=== PATIENT | male | born 1940 | race Caucasian/White ===

== ENCOUNTER 2018-08-09 09:28 | Inpatient (IN) | payer MEDICARE, OTHER ==
--- OUTSIDE RECORDS SUMMARY | 2018-08-09 09:44 | XMS REPORT | Continuity of Care Document ---
:1940 External Reference #:[id number] Author Name Albert Mathews, OD Address [address] [place] [address] Care Team Providers Name Role Phone MD Sancho, Christine Care Team Information Child Development Specialist Unavailable MD Sancho, Christine Primary Care Physician Unavailable Payers Date Identification Numbers Payment Provider Subscriber Policy Number: [id number] [employer] Pos Eduardo Mosley PayID: [id number] [address] [place] [address] Problems Active Problems Provider Date Presbyopia Albert Joseph O.D. Onset: 01/09/2015 Regular astigmatism Albert Joseph O.D. Onset: 01/09/2015 Myopia Albert Joseph O.D. Onset: 01/09/2015 Primary open-angle glaucoma, moderate stage Albret Joseph O.D. Onset: 01/09 Vitreous degeneration Albert Joseph O.D. Onset: 01/08/2014 Nuclear senile cataract Albert Joseph O.D. Onset: 01/08/2014 Open-angle glaucoma DR. Kayla Carrasco O.D. Onset: 04/03/2013 Family History Date Family Member(s) Observation Comments Father Glaucoma Father due to Natural Causes () Father Diabetes Mother Glasses Mother due to Natural Causes () Social History Type Date Description Comments Sex Unknown ETOH Use Occasionally consumes alcohol Tobacco Use Start: Unknown End: Unknown Patient is a former smoker Smoking Status Reviewed: 07/15/18 Patient is a former smoker Allergies, Adverse Reactions, Alerts Active Allergies Reaction Severity Comments Date Seasonal 04/03/2013 Lipitor 04/03/2013 Neosporin 04/03/2013 Medications Active Medications SIG Qnty Indications Ordering Provider Date Dorzolamide instill 1 drop 10units Albert Mathews, OD 01/17/2018 HCL/Timolol Maleate twice a day both eyes 22.3-6.8mg/ml Solution Latanoprost 1 drops both 7.5units Albert Mathews, OD 08/30/2017 0.005% eyes every night Solution Lisinopril MD Sancho, 40mg King Tablets Amlodipine Besylate MD Sancho, King 5mg Tablets Pravastatin Sodium MD Sancho, King 20mg Tablets Allopurinol MD Sancho, 300mg King Tablets Diltiazem HCL ER MD Sancho, Coated Beads King 240mg Tablets ER 24HR History Medications Dorzolamide instill 1 drop 10units Albert Mathews, 09/03/2017 - HCL/Timolol Maleate Qam OU OD 01/17/2018 22.3-6.8mg/ml Solution Latanoprost 1 drops both 7.500ml Albert Mathews, 08/23/2017 - 0.005% eyes every OD 08/30/2017 Solution night Cosopt one drop Qam OU 10ml Albert Mathews, 08/23/2017 - 22.3-6.8mg/ml OD 09/23/2017 Solution Cosopt one drop Qam OU 10ml Albert Mathews, 02/18/2017 - 22.3-6.8mg/ml OD 08/23/2017 Solution Latanoprost 1 drops both 7.500ml Albert Mathews, 02/10/2017 - 0.005% eyes every OD 08/23/2017 Solution night Cosopt one drop Qam OU 10ml H40.1133 Albert Mathews, 08/27/2016 - 22.3-6.8mg/ml OD 02/18/2017 Solution Dorzolamide instill 1 drop 10units H40.1133 Albert Mathews, 06/26/2016 - HCL/Timolol Maleate Qam OU OD 09/03/2017 22.3-6.8mg/ml Solution Timolol Maleate 1 drops left 15ml H40.11x2 [place], 05/14/2015 - 0.5% eye every M.D. 08/27/2016 Solution morning Latanoprost instill 1 drop 7.5ml [place], 11/10/2013 - 0.005% in each eye at M.D. 02/10/2017 Solution bedtime Vital Signs Date Vital Result Comment 03/30/2018 9:31am Intraocular Pressure Right Eye 13 mmHg Intraocular Pressure Left Eye 13 mmHg 12/24/2017 11:15am Intraocular Pressure Right Eye 16 mmHg Intraocular Pressure Left Eye 15 mmHg 09/23/2017 8:18am Intraocular Pressure Right Eye 14 mmHg Intraocular Pressure Left Eye 15 mmHg 06/22/2017 8:57am Intraocular Pressure Right Eye 12 mmHg Intraocular Pressure Left Eye 12 mmHg 03/24/2017 8:25am Intraocular Pressure Right Eye 15 mmHg Intraocular Pressure Left Eye 16 mmHg 12/22/2016 8:33am Intraocular Pressure Right Eye 13 mmHg Intraocular Pressure Left Eye 13 mmHg 08/27/2016 9:31am Intraocular Pressure Right Eye 11 mmHg Intraocular Pressure Left Eye 11 mmHg 06/26/2016 2:06pm Intraocular Pressure Right Eye 15 mmHg Intraocular Pressure Left Eye 15 mmHg 04/06/2016 8:37am Intraocular Pressure Right Eye 16 mmHg Intraocular Pressure Left Eye 16 mmHg 05/24/2015 9:36am Intraocular Pressure Right Eye 16 mmHg Intraocular Pressure Left Eye 15 mmHg 05/14/2015 11:44am Intraocular Pressure Right Eye 17 mmHg Intraocular Pressure Left Eye 33 mmHg 01/09/2015 8:24am Intraocular Pressure Right Eye 14 mmHg Intraocular Pressure Left Eye 14 mmHg 08/09/2014 9:46am Intraocular Pressure Right Eye 15 mmHg Intraocular Pressure Left Eye 15 mmHg 05/08/2014 8:58am Intraocular Pressure Right Eye 18 mmHg Intraocular Pressure Left Eye 18 mmHg 01/08/2014 8:36am Intraocular Pressure Right Eye 19 mmHg Intraocular Pressure Left Eye 19 mmHg 09/05/2013 8:14am Intraocular Pressure Right Eye 17 mmHg Intraocular Pressure Left Eye 17 mmHg 06/06/2013 8:41am Intraocular Pressure Right Eye 17 mmHg Intraocular Pressure Left Eye 17 mmHg 04/03/2013 9:04am Intraocular Pressure Right Eye 16 mmHg Intraocular Pressure Left Eye 16 mmHg Procedures Date Code Description Status 03/30/2018 21835 Fundus Photography W/Interpretation & Report Completed 03/30/2018 07646 Eye Exam Est Intermediate Completed 12/24/2017 93087 Oct, Optic Nerve Completed 12/24/2017 46847 Eye Exam Est Intermediate Completed 09/23/2017 43438 Eye Exam Est Intermediate Completed 06/22/2017 82609 Visual Field Exam Extended, Unilateral Or Bilateral Completed 06/22/2017 71140 Eye Exam Est Intermediate Completed 03/24/2017 52918 Fundus Photography W/Interpretation & Report Completed 03/24/2017 38495 Ophthalmoscopy Subsequent Completed 03/24/2017 62216 Refraction Completed 03/24/2017 32793 Eye Exam Est Intermediate Completed 12/22/2016 47541 Eye Exam Est Intermediate Completed 12/22/2016 92283 Oct, Optic Nerve Completed 06/26/2016 41522 Oct, Optic Nerve Completed 06/26/2016 97757 Visual Field Exam Extended, Unilateral Or Bilateral Completed 06/26/2016 05823 Eye Exam Est Intermediate Completed 04/06/2016 43808 Fundus Photography W/Interpretation & Report Completed 04/06/2016 25214 Ophthalmoscopy Subsequent Completed 04/06/2016 45988 Eye Exam Est Comprehensive Completed 2015 65906 Visual Field Exam Extended, Unilateral Or Bilateral Completed 2015 67922 Visual Field Exam Extended, Unilateral Or Bilateral Completed 05/24/2015 00442 Oct, Optic Nerve Completed 05/24/2015 50753 Eye Exam Est Intermediate Completed 01/09/2015 15212 Eye Exam Est Comprehensive Completed 01/09/2015 28358 Fundus Photography W/Interpretation & Report Completed 08/09/2014 30779 Visual Field Exam Extended, Unilateral Or Bilateral Completed 08/09/2014 65389 Eye Exam Est Intermediate Completed 05/08/2014 23282 Oct, Optic Nerve Completed 05/08/2014 83803 Eye Exam Est Intermediate Completed 01/08/2014 42763 Refraction Completed 01/08/2014 35831 Eye Exam Est Comprehensive Completed 06/06/2013 43981 Visual Field Exam Extended, Unilateral Or Bilateral Completed 06/06/2013 72287 Eye Exam Est Intermediate Completed 04/03/2013 24347 Visual Field Exam Extended, Unilateral Or Bilateral Completed 04/03/2013 75903 Eye Exam Est Intermediate Completed 05/04/2011 90906 Eye Exam Est Intermediate Completed 05/04/2011 34629 Visual Field Exam Extended, Unilateral Or Bilateral Completed 01/27/2011 57785 Fundus Photography W/Interpretation & Report Completed 01/27/2011 55594 Refraction Completed 01/27/2011 82254 Eye Exam Est Comprehensive Completed 05/26/2010 05433 Eye Exam Est Intermediate Completed 03/17/2010 18794 Eye Exam Est Intermediate Completed 03/03/2010 30761 Visual Field Exam Extended, Unilateral Or Bilateral Completed 03/03/2010 64297 Eye Exam Est Intermediate Completed 02/10/2010 87300 Fundus Photography W/Interpretation & Report Completed 02/10/2010 20089 Refraction Completed 02/10/2010 26356 Eye Exam New Comprehensive Completed Encounters Type Date Location Provider Dx Diagnosis Office Visit 08/27/2016 Main Office Albert Mathews, OD H40.1133 Primary open-angle 9:15a glaucoma, bilateral, severe stage Office Visit 05/14/2015 Main Office Albert Joseph, H40.11x2 Primary open- angle 11:15a O.D. glaucoma, moderate stage Office Visit 09/05/2013 Main Office Albert Joseph, 365.10 Glaucoma Open Angle 8:00a O.D. Unspec Office Visit 10/24/[address] Kayla Carrasco, 365.00 Preglaucoma Unspec 9:00a O.D. 365.10 Glaucoma Open Angle Unspec Plan of Treatment 07/15/2018 - Albert Mathews, ODH40.1133 Primary open-angle glaucoma, bilateral, severe vicivG87.13 Age-related nuclear cataract, bilateralFollow up:3 mos IOP, sooner PRN
[2018-08-09] MEDS ORDERED: NS 0.9% 1000 ML** 1,000 ML IV.FLUID IV ONE (10:21)
--- NOTE | 2018-08-09 10:46 | ED ---
Dizziness - HPI Summary HPI Summary: Pt is a 77 y/o M with hx metastatic pancreatic cancer presenting to the ED with a chief complaint of generalized weakness first onset multiple weeks but worsened in the past week. He presents with his and friends. His reports his last chemotherapy treatment was 08/01/18. He reports constipation, weakness, slight SOB on exertion, decrease in motor ability, decrease in oral intake, chills, weight loss of about 8-10lbs, and abd pain in the lower abd currently rated at a 3/10. He also had a brief period of red/orange urine that has since resolved. He denies fever, nausea, chest pain, calf pain, or edema. He used to use Insulin for his Diabetes but the chemotherapy causes his levels to go out of the normal range, so he does not take it anymore. He also has Morphine at home which he does not like to take, and he currently denies wanting any Morphine. He last fell on 08/07/[address] to the bathroom, where he scraped his knees. He also has paracentesis every couple of weeks, and the last time they drained them 4L were taken out, and an US showed they were loculated. When attempting paracentesis with loculations, only 800cc were taken off. Pt is next due for chemo on 08/15/18. Pt was due to have a CT tomorrow, and an MRI the next day. Vital signs while in room: HR 95bpm, SaO2 95% on room air, 19 respirations per minute, BP 105/67, temperature 99.1. Home Medications Medication Instructions Recorded Confirmed Type Allopurinol TAB* 300 mg PO QPM 05/07/17 08/02/18 History Diltiazem ER 200 tab PO QPM 05/07/17 08/02/18 History Lisinopril TAB* 20 mg PO QPM 05/07/17 08/02/18 History Dorzolamide/Timolol OPTH (NF) 1 drop BOTH EYES BID 05/12/17 08/02/18 History [Cosopt (NF)] Latanoprost 0.005%* [Xalatan 1 drop BOTH EYES DAILY 05/12/17 08/02/18 History 0.005%*] Cholecalciferol CAP/TAB(NF) 2,000 unit PO QAM 05/19/18 08/02/18 History [Vitamin D3 CAP/TAB (NF)] Magnesium Oxide TAB* [MagOx 400 400 mg PO BID 05/19/18 08/02/18 History TAB*] Vitamin D2 1 tab PO QAM 05/19/18 08/02/18 History - History Of Current Complaint Chief Complaint: EDWeakness Stated Complaint: DEHYDRATED/CHILLS/DISCOLORATION IN FACE PER PT WIF Hx Obtained From: Patient, Family/Inspector Multifocal Lens - Onset/Duration: Still Present, Gradually Timing: Weeks Severity Initially: Moderate Severity Currently: Moderate Character: Weak Aggravating Factor(s): Nothing Alleviating Factor(s): Nothing Associated Signs And Symptoms: Positive: SOB, Unsteady Gait, Decreased Oral Intake, Change In Diet, Chills, Inability to Walk - feels like his legs will give out.. Negative: Nausea, Chest Pain, Fever - Allergies/Home Medications Allergies/Adverse Reactions: Allergies Allergy/AdvReac Type Severity Reaction Status Date / Time bacitracin Allergy Unknown Verified 08/09/18 09:30 [From Neosporin Reaction ([id number])] Details neomycin Allergy Unknown Verified 08/09/18 09:30 [From Neosporin Reaction ([id number])] Details polymyxin B Allergy Unknown Verified 08/09/18 09:30 [From Neosporin Reaction ([id number])] Details Home Medications: Home Medications Allopurinol TAB* [Zyloprim 300 MG TAB*] 300 mg PO BEDTIME 08/09/18 [History Confirmed 08/09/18] Magic Mouth Was-RACHEL/MAAL/LIDO* 5 ml SWISH SPIT DAILY 08/09/18 [History Confirmed 08/09/18] Morphine Sulfate 15 mg PO Q2H PRN 08/09/18 [History Confirmed 08/09/18] Prochlorperazine TAB* [Compazine Tab*] 10 mg PO Q8H PRN 08/09/18 [History Confirmed 08/09/18] Spironolactone 50 mg PO BEDTIME 08/09/18 [History Confirmed 08/09/18] PMH/Surg Hx/FS Hx/Imm Hx Previously Healthy: No Endocrine/Hematology History: Denies: Hx Diabetes Cardiovascular History: Reports: Hx Hypertension Denies: Hx Pacemaker/ICD GI History: Reports: Other GI Disorders - PANCREATITIS, WAS IN HOSPITAL FEW WEEKS IN 04/2018,metastatic pancreatic CA History: Denies: Hx Renal Disease Sensory History: Reports: Hx Contacts or Glasses - GLASSES Denies: Hx Hearing Aid Opthamlomology History: Reports: Hx Contacts or Glasses - GLASSES Psychiatric History: Denies: Hx Panic Disorder - Cancer History Cancer Type, Location and Year: metastatic pancreatic CA on chemo - Surgical History Surgical History: Yes Surgery Procedure, Year, and Place: 194 tonsillectomy,. 2012 left leg with plate [facility]. power port R side chest. stent placed Hx Anesthesia Reactions: No Infectious Disease History: No Infectious Disease History: Denies: Traveled Outside the [place] in Last 30 Days - Family History Known Family History: Negative: Cardiac Disease - Social History Lives: With Family Alcohol Use: None Hx Substance Use: Yes Substance Use Type: Reports: Prescribed Substance Use Comment - Amount & Last Used: morphine Hx Tobacco Use: Yes Smoking Status (MU): Former Smoker Type: Cigarettes Amount Used/How Often: 1PPD 30 YRS Have You Smoked in the Last Year: No Review of Systems Positive: Chills, Fatigue, Other - dec. oral intake. Negative: Fever Negative: Chest Pain Positive: Shortness Of Breath Positive: Abdominal Pain, Other - constipation. Negative: Nausea Positive: other - red/orange urine that has since resolved Positive: Other - dec. in motor ability. Negative: Myalgia - calf pain, Edema Positive: Bruising - bilateral forearms , Other - abrasions bilat knees Positive: Weakness Psychological: Normal All Other Systems Reviewed And Are Negative: Yes Physical Exam - Summary Physical Exam Summary: Appearance: Ill-appearing, moderate pain distress, thin, borderline emaciated Skin: Warm, color reflects adequate perfusion, dry. Superficial abrasions of the bilateral knees. Multiple ecchymosis of bilateral forearms, superficial abrasions on bilateral elbows. Head: Normal Head/Face inspection, atraumatic Eyes: Conjunctiva clear, PERRL, EOMI, no nystagmus ENT: Normal inspection Neck: Supple, no nodes, no JVD Respiratory: Lungs clear, normal breath sounds, no respiratory distress Cardio: RRR, No murmur, pulses normal, brisk capillary refill Abdomen: Reducible ventral hernia, soft, non-tender, no rebound, no guarding, no masses, non-distended Bowel sounds: Present Musculoskeletal: Strength Intact/ROM intact, no calf tenderness, no edema. Psychological: Normal Neuro: Alert, muscle tone normal, no focal deficit Triage Information Reviewed: Yes Vital Signs On Initial Exam: Initial Vitals Temp Pulse Resp BP Pulse Ox 97.8 F 108 20 93/61 93 08/09/18 09:30 08/09/18 09:30 08/09/18 09:30 08/09/18 09:30 08/09/18 09:30 Vital Signs Reviewed: Yes - Marion Coma Scale Best Eye Response: 4 - Spontaneous Best Motor Response: 6 - Obeys Commands Best Verbal Response: 5 - Oriented Coma Scale Total: 15 Diagnostics - Vital Signs Vital Signs Temp Pulse Resp BP Pulse Ox 08/09/18 09:30 97.8 F 108 20 93/61 93 - Laboratory Result Diagrams: 08/10/18 05:30 08/10/18 05:30 Lab Statement: Any lab studies that have been ordered have been reviewed, and results considered in the medical decision making process. - Radiology CXR Radiology Interpretation Completed By: Radiologist Summary of Radiographic Findings: Hyperinflation. No active cardiopulmonary disease. ED physician has reviewed this report. - CT Brain CT CT Interpretation Completed By: Radiologist Summary of CT Findings: 1. No CT evidence for traumatic brain injury or acute intracranial process. 2. Involutional change and stigmata of chronic small vessel ischemic disease. ED physician has reviewed this report. Abd/pelv CT CT Interpretation Completed By: Radiologist Summary of CT Findings: 1. Interval progression of hepatic metastatic disease. 2. Small volume ascites primarily in the pelvis with interval decrease. 3. Negative for obstructive uropathy. 4. Solitary mildly enlarged aortocaval lymph node without change. ED physician has reviewed this report. - EKG 1045 Cardiac Rate: NL - 85bpm EKG Rhythm: Sinus Rhythm ST Segment: Non-Specific Ectopy: None EKG Comparison: Other - no prior to compare Summary of EKG Findings: An EKG at 1045 reveals NSR at 85bpm with nml AV/IV CT, nml QTc, and nml axis. No acute changes. ED MD has reviewed and interpreted this EKG. Low voltage. Re-Evaluation - Re-Evaluation 1st re-eval Re-Evaluation Time: 12:24 Change: Unchanged Comment: Pt's states he is a full code. Dizzy Course/Dx - Course Course Of Treatment: Nurse's notes reviewed, pt's medications reviewed this visit. Pt is a 77 y/o M presenting to the ED with a chief complaint of weakness first onset multiple weeks ago, but worsened in the last week. He reports constipation, weakness, slight SOB on exertion, decrease in motor ability, decrease in oral intake, chills, weight loss of about 8-10lbs, and abd pain in the lower abd currently rated at a 3/10. He also had a brief period of red/ orange urine that has since resolved. He denies fever, nausea, chest pain, calf pain, or edema. Vital signs while in room: HR 95bpm, SaO2 95% on room air, 19 respirations per minute, BP 105/67, temperature 99.1. On physical exam, the pt has multiple superficial abrasions of the bilateral knees, multiple ecchymosis of bilateral forearms, superficial abrasions on bilateral elbows. CXR shows: Hyperinflation. No active cardiopulmonary disease. An EKG at 1045 reveals NSR at 85bpm with nml AV/IV CT, nml QTc, and nml axis. No acute changes. ED MD has reviewed and interpreted this EKG. Low voltage. Pt's troponin I is 0.04. Pts hematology shows RBC of 3.00, Hgb of 8.2, Hct of 25, and RDW of 20. His INR is 1.45. His chemistry shows a Sodium of 127, Chloride of 95, Creatinine of 0.52, BUN/Creatinine ratio of 36.5, AST of 43, Alkaline phosphate of 341, CRP of 152.64, total protein of 5.6, Albumin of 2.4, and Albumin/Globulin ratio of 0.8. His BNP is 270. Brain CT shows: 1. No CT evidence for traumatic brain injury or acute intracranial process. 2. Involutional change and stigmata of chronic small vessel ischemic disease. Abd/pelv CT shows: 1. Interval progression of hepatic metastatic disease. 2. Small volume ascites primarily in the pelvis with interval decrease. 3. Negative for obstructive uropathy. 4. Solitary mildly enlarged aortocaval lymph node without change. I spoke with Dr. Rocha at 11:42 who will be accepting the pt to [facility] [place]. - Diagnoses Differential Diagnosis/HQI/PQRI: GI Bleed, Hypovolemia, Medication Reaction, Metabolic Abnormality Provider Diagnoses: Anemia, Hyponatremia, Generalized weakness, Weight loss, Abdominal pain, Elevated troponin, Pancreatic cancer metastasized to liver - Provider Notifications Discussed Care Of Patient With: Kaiser Rocha Time Discussed With Above Provider: 11:42 Instructed by Provider To: Admit As Inpatient Admit/Transition Orders Completed By ED Provider: Yes Discharge - Sign-Out/Discharge Documenting (check all that apply): Patient Departure All imaging exams completed and their final reports reviewed: Yes Patient Received Moderate/Deep Sedation with Procedure: No - Discharge Plan Condition: Stable Disposition: ADMITTED TO [facility] - Billing Disposition and Condition Condition: STABLE Disposition: Admitted to [facility] - Attestation Statements Document Initiated by Scribe: Yes Documenting Scribe: Terri Brown Provider For Whom Roberta is Documenting (Include Credential): Dr. Terrie Amado MD. Scribe Attestation: Terri Krueger scribed for Dr. Terrie Amado MD. on 08/11/18 at 0655. Scribe Documentation Reviewed: Yes Provider Attestation: The documentation as recorded by the peribe, Terri Brown accurately reflects the service I personally performed and the decisions made by me, Dr. Terrie Amado MD. Status of Scribe Document: Viewed Consult Consult: I spoke with Dr. Rocha at 11:42 who will be accepting the pt to [facility].
[2018-08-09 10:56] LABS: Hematocrit 25 % (42-52); Hemoglobin 8.2 g/dL (14.0-18.0); Mean Corpuscular HGB Conc 33 g/dL (31-36); Mean Corpuscular Hemoglobin 27 pg (27-31); Mean Corpuscular Volume 84 fL (80-94); Mean Platelet Volume 7.9 fL (7.4-10.4); Platelet Count 251 10^3/uL (150-450); Red Cell Distribution Width 20 % (10-15); White Blood Count 4.3 10^3/uL (3.5-10.8)
[2018-08-09 11:03] LABS: INR 1.45 (0.82-1.09)
[2018-08-09 11:17] LABS: ALT 52 U/L (7-52); AST 43 U/L (13-39); Albumin 2.4 g/dL (3.2-5.2); Albumin/Globulin Ratio 0.8 (1-3); Alkaline Phosphatase 341 U/L (34-104); Anion Gap 6 mmol/L (2-11); BUN/Creatinine Ratio 36.5 (8-20); Blood Urea Nitrogen 19 mg/dL (6-24); CO2 Carbon Dioxide 26 mmol/L (22-32); Calcium 8.7 mg/dL (8.6-10.3); Chloride 95 mmol/L (101-111); EGFR African American 187.5 (>60); EGFR Non-African American 154.9 (>60); Globulin 3.2 g/dL (2-4); Glucose 88 mg/dL (70-100); Potassium 3.8 mmol/L (3.5-5.0); Sodium 127 mmol/L (135-145); Total Protein 5.6 g/dL (6.4-8.9)
[2018-08-09 11:24] LABS: Troponin I 0.04 ng/mL (<0.04)
[2018-08-09 11:47] LABS: C Reactive Protein 152.64 mg/L (<8.01); Creatine Kinase 53 U/L (10-223)
[2018-08-09 11:55] LABS: ABS Lymphocytes 0.3 10^3/ul (1.0-4.8); ABS Monocytes 0.4 10^3/ul (0-0.8); ABS Neutrophils 3.5 10^3/ul (1.5-7.7); Lymphocyte % 7.3 %
[2018-08-09 12:13] LABS: Urine Appearance Cloudy; Urine Bacteria Absent (Absent); Urine Bilirubin Negative (Negative); Urine Blood Negative (Negative); Urine Color Amber; Urine Glucose Negative (Negative); Urine Ketones Negative (Negative); Urine Nitrite Negative (Negative); Urine Protein 1+(30 mg/dL) (Negative); Urine Red Blood Cell Trace(0-2/hpf) (Absent); Urine Specific Gravity 1.023 (1.010-1.030); Urine Urobilinogen Negative (Negative); Urine White Blood Cell Trace(0-5/hpf) (Absent)
[2018-08-09] MEDS ORDERED: Iohexol 300* (CONTRAST) 10 ML SDV IV ONE (12:27)
[2018-08-09] MEDS ORDERED: Prochlorperazine TAB* 10 MG PO PRN (16:21)
[2018-08-09] MEDS ORDERED: Magic Mouth Was-BEN/MAAL/LIDO SWISH SPIT PRN (16:21)
[2018-08-09] MEDS ORDERED: Morphine ORAL.SOLN 10 mg* 2 MG/ML UDC 5 ml PO PRN (16:21)
[2018-08-09 16:55] LABS: Prealbumin 4 mg/dL (18-38)
[2018-08-09] MEDS: Enoxaparin(*) 40 MG/0.4 ML SYR SUBCUT SCH (18:08)
[2018-08-09] MEDS: NS 0.9% 1000 ML** 1,000 ML IV SCH (18:09)
[2018-08-09] MEDS: Allopurinol TAB* 300 MG PO SCH (20:08)
[2018-08-10] MEDS ORDERED: Piperacillin/Tazobac ADVAN(*) 3.375 GM in NS 0.9% 100 ML* 100 ML IVPB ONE (05:29)
[2018-08-10 05:43] LABS: Hematocrit 23 % (42-52); Hemoglobin 7.7 g/dL (14.0-18.0); Mean Corpuscular HGB Conc 34 g/dL (31-36); Mean Corpuscular Hemoglobin 28 pg (27-31); Mean Corpuscular Volume 83 fL (80-94); Mean Platelet Volume 7.9 fL (7.4-10.4); Platelet Count 252 10^3/uL (150-450); Red Blood Count 2.75 10^6 /uL (4.18-5.48); Red Cell Distribution Width 20 % (10-15); White Blood Count 3.2 10^3/uL (3.5-10.8)
[2018-08-10 05:58] LABS: Albumin 2.2 g/dL (3.2-5.2); Albumin/Globulin Ratio 0.8 (1-3); Calcium 8.2 mg/dL (8.6-10.3); EGFR African American 196.1 (>60); EGFR Non-African American 162.1 (>60); Globulin 2.7 g/dL (2-4); Potassium 3.6 mmol/L (3.5-5.0); Total Bilirubin 0.7 mg/dL (0.2-1.0); Total Protein 4.9 g/dL (6.4-8.9)
[2018-08-10] MEDS ORDERED: Zosyn per Pharmacy* NOTE FOLLOW UP SCH (06:00)
[2018-08-10 06:40] LABS: ABS Lymphocytes 0.3 10^3/ul (1.0-4.8); ABS Monocytes 0.4 10^3/ul (0-0.8); ABS Neutrophils 2.4 10^3/ul (1.5-7.7); Lymphocyte % 9.6 %
[2018-08-10] MEDS: NS 0.9% 1000 ML** 1,000 ML IV SCH ×2 (08:00→20:55)
[2018-08-10] MEDS: ZOSYN 3.375 GM Q8H per EXTENDED INFUSION IVPB SCH ×4 (11:07→17:17)
--- NOTE | 2018-08-10 16:11 | CONSULT ---
Palliative / Hospice Consult Ordering Provider: Kaiser Rocha - PCP-Sancho Referakin Reason: Goals of care discussion/hospice - Subjective Code Status: DNR Advance Directives Location: No Advance Directives [facility] [[email or web address]] Part A Completed: Yes - on chart - History or Present Illness History or Present Illness: 77yo male with pancreatic cancer presents to ER with severe weakness and decreased intake. PMH is significant for ATN 04/2018 resolved, DM type 2, glaucoma, HTN, mitral valve insufficiency and osteoarthritis. 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 Studies ekg-nsr, CXR-no active disease, brain CT chronic small vessel ischemic disease, CT abd/pelvis-thorax emphysema, atelectasis and minimal effusion, multiple liver lesions, pancreatic mass head and neck, H/H 7.7/23, Na 128, BUN/ Cr 19/.5 egfr 162, Ca 8.2, tprot 4.9, alb 2.2, prealb 4, CA 19-9 95 and INR 1.45. All history is from pt, and medical records. Pt presented with fatigue in Feb and painless jaundice in Mar, cat scan showed mass in head and neck of pancreas. 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 Pt had a 12 d hospital stay. He began chemo in May and seemed to be doing well but the last few weeks he has been weak and with decreased intake. According to pt and he had been tolerating chemo just sick the first 2 days but then with improvement prior to next dose. He is admitted now with diagnosis of sepsis, dehydration, weakness and pancreatic cancer. Lab Values: Abnormal Lab Results 08/09/18 08/09/18 08/10/18 10:39 10:40 05:30 WBC 3.2 L RBC 2.75 L Hgb 7.7 L Hct 23 L MCV 83 MCH 28 MCHC 34 RDW 20 H Plt Count 252 MPV 7.9 Neut % (Auto) 76.2 Lymph % (Auto) 9.6 Mclennan % (Auto) 12.8 Eos % (Auto) 1.0 Baso % (Auto) 0.4 Absolute Neuts (auto) 2.4 Absolute Lymphs (auto) 0.3 L Absolute Monos (auto) 0.4 Absolute Eos (auto) 0.0 Absolute Basos (auto) 0.0 Absolute Nucleated RBC 0.0 Nucleated RBC % 0.0 Sodium 127 L Potassium 3.8 Chloride 95 L Carbon Dioxide 26 Anion Gap 6 BUN 19 Creatinine 0.52 L Est GFR ( Amer) 187.5 Est GFR (Non-Af Amer) 154.9 BUN/Creatinine Ratio 36.5 H Glucose 88 Calcium 8.7 Total Bilirubin 0.70 AST 43 H ALT 52 Alkaline Phosphatase 341 H Total Creatine Kinase 53 Troponin I 0.04 H* C-Reactive Protein 152.64 H Total Protein 5.6 L Albumin 2.4 L Globulin 3.2 Albumin/Globulin Ratio 0.8 L Prealbumin 4 L CA 19-9 Antigen 95 H 08/10/18 05:30 WBC RBC Hgb Hct MCV MCH MCHC RDW Plt Count MPV Neut % (Auto) Lymph % (Auto) Mclennan % (Auto) Eos % (Auto) Baso % (Auto) Absolute Neuts (auto) Absolute Lymphs (auto) Absolute Monos (auto) Absolute Eos (auto) Absolute Basos (auto) Absolute Nucleated RBC Nucleated RBC % Sodium 128 L Potassium 3.6 Chloride 100 L Carbon Dioxide 23 Anion Gap 5 BUN 19 Creatinine 0.50 L Est GFR ( Amer) 196.1 Est GFR (Non-Af Amer) 162.1 BUN/Creatinine Ratio 38.0 H Glucose 76 Calcium 8.2 L Total Bilirubin 0.70 AST 30 ALT 37 Alkaline Phosphatase 282 H Total Creatine Kinase Troponin I C-Reactive Protein Total Protein 4.9 L Albumin 2.2 L Globulin 2.7 Albumin/Globulin Ratio 0.8 L Prealbumin CA 19-9 Antigen Laboratory Last Values WBC 3.2 10^3/uL (3.5-10.8) L 08/10/18 05:30 RBC 2.75 10^6 /uL (4.18-5.48) L 08/10/18 05:30 Hgb 7.7 g/dL (14.0-18.0) L 08/10/18 05:30 Hct 23 % (42-52) L 08/10/18 05:30 MCV 83 fL (80-94) 08/10/18 05:30 MCH 28 pg (27-31) 08/10/18 05:30 MCHC 34 g/dL (31-36) 08/10/18 05:30 RDW 20 % (10-15) H 08/10/18 05:30 Plt Count 252 10^3/uL (150-450) 08/10/18 05:30 MPV 7.9 fL (7.4-10.4) 08/10/18 05:30 Neut % (Auto) 76.2 % 08/10/18 05:30 Lymph % (Auto) 9.6 % 08/10/18 05:30 Mclennan % (Auto) 12.8 % 08/10/18 05:30 Eos % (Auto) 1.0 % 08/10/18 05:30 Baso % (Auto) 0.4 % 08/10/18 05:30 Absolute Neuts (auto) 2.4 10^3/ul (1.5-7.7) 08/10/18 05:30 Absolute Lymphs (auto) 0.3 10^3/ul (1.0-4.8) L 08/10/18 05:30 Absolute Monos (auto) 0.4 10^3/ul (0-0.8) 08/10/18 05:30 Absolute Eos (auto) 0.0 10^3/ul (0-0.6) 08/10/18 05:30 Absolute Basos (auto) 0.0 10^3/ul (0-0.2) 08/10/18 05:30 Absolute Nucleated RBC 0.0 10^3/ul 08/10/18 05:30 Nucleated RBC % 0.0 08/10/18 05:30 ESR 105 mm/Hr (0-19) H 08/09/18 13:39 INR (Anticoag Therapy) 1.45 (0.82-1.09) H 08/09/18 10:39 APTT 37.0 seconds (26.0-38.0) 08/09/18 10:39 Sodium 128 mmol/L (135-145) L 08/10/18 05:30 Potassium 3.6 mmol/L (3.5-5.0) 08/10/18 05:30 Chloride 100 mmol/L (101-111) L 08/10/18 05:30 Carbon Dioxide 23 mmol/L (22-32) 08/10/18 05:30 Anion Gap 5 mmol/L (2-11) 08/10/18 05:30 BUN 19 mg/dL (6-24) 08/10/18 05:30 Creatinine 0.50 mg/dL (0.67-1.17) L 08/10/18 05:30 Est GFR ( Amer) 196.1 (>60) 08/10/18 05:30 Est GFR (Non-Af Amer) 162.1 (>60) 08/10/18 05:30 BUN/Creatinine Ratio 38.0 (8-20) H 08/10/18 05:30 Glucose 76 mg/dL (70-100) 08/10/18 05:30 Lactic Acid 0.7 mmol/L (0.5-2.0) 08/09/18 13:39 Calcium 8.2 mg/dL (8.6-10.3) L 08/10/18 05:30 Total Bilirubin 0.70 mg/dL (0.2-1.0) 08/10/18 05:30 AST 30 U/L (13-39) 08/10/18 05:30 ALT 37 U/L (7-52) 08/10/18 05:30 Alkaline Phosphatase 282 U/L (34-104) H 08/10/18 05:30 Total Creatine Kinase 53 U/L (10-223) 08/09/18 10:40 Troponin I 0.03 ng/mL (<0.04) 08/09/18 13:39 C-Reactive Protein 152.64 mg/L (<8.01) H 08/09/18 10:40 B-Natriuretic Peptide 270 pg/mL (<=100) H 08/09/18 11:00 Total Protein 4.9 g/dL (6.4-8.9) L 08/10/18 05:30 Albumin 2.2 g/dL (3.2-5.2) L 08/10/18 05:30 Globulin 2.7 g/dL (2-4) 08/10/18 05:30 Albumin/Globulin Ratio 0.8 (1-3) L 08/10/18 05:30 Prealbumin 4 mg/dL (18-38) L 08/09/18 10:40 CA 19-9 Antigen 95 U/mL (<35) H 08/09/18 10:39 Urine Color Genesis 08/09/18 11:56 Urine Appearance Cloudy 08/09/18 11:56 Urine pH 5.0 (5-9) 08/09/18 11:56 Ur Specific [place] 1.023 (1.010-1.030) 08/09/18 11:56 Urine Protein 1+(30 mg/dl) (Negative) A 08/09/18 11:56 Urine Ketones Negative (Negative) 08/09/18 11:56 Urine Blood Negative (Negative) 08/09/18 11:56 Urine Nitrate Negative (Negative) 08/09/18 11:56 Urine Bilirubin Negative (Negative) 08/09/18 11:56 Urine Urobilinogen Negative (Negative) 08/09/18 11:56 Ur Leukocyte Esterase Negative (Negative) 08/09/18 11:56 Urine WBC (Auto) Trace(0-5/hpf) (Absent) 08/09/18 11:56 Urine RBC (Auto) Trace(0-2/hpf) (Absent) 08/09/18 11:56 Urine Bacteria Absent (Absent) 08/09/18 11:56 Urine Glucose Negative (Negative) 08/09/18 11:56 - Objective Active Medications: Allopurinol (Zyloprim Tab*) 300 mg PO BEDTIME [facility] Last Admin: 08/09/18 20:08 Dose: 300 mg Enoxaparin Sodium (Lovenox(*)) 40 mg SUBCUT Q24H [facility] Last Admin: 08/09/18 18:08 Dose: 40 mg Heparin Sodium (Porcine) (Heparin Flush Port (Ivad)) 5 ml FLUSH DAILY [facility]; Protocol Last Admin: 08/10/18 08:15 Dose: Not Given Sodium Chloride (Ns 0.9% 1000 Ml) 1,000 mls @ 75 mls/hr IV PER RATE [facility] Last Admin: 08/10/18 08:00 Dose: 75 mls/hr Piperacillin Sod/Tazobactam (Sod 3.375 gm/ Sodium Chloride) 100 mls @ 25 mls/ hr IVPB Q8H [facility] Last Admin: 08/10/18 11:07 Dose: 25 mls/hr Morphine Sulfate (Morphine Oral.Soln 10 Mg*) 15 mg PO Q6H PRN PRN Reason: PAIN Multi-Ingredient Mouthwash/Gargle (Magic Mouth Was-Femi/Maal/Lido*) 5 ml SWISH SPIT QID PRN PRN Reason: mouth sores Pharmacy Consult (Zosyn Per Pharmacy*) 1 note FOLLOW UP .ZOSYN PER PHARMACY [facility] Prochlorperazine (Compazine Tab*) 10 mg PO Q8H PRN PRN Reason: NAUSEA Vital Signs: Vital Signs: Temp Pulse Resp BP Pulse Ox 98.2 F 86 18 122/70 96 08/10/18 11:00 08/10/18 11:00 08/10/18 11:00 08/10/18 11:00 08/10/18 11:00 Patient Weight: Weight 71.668 kg Intake and Output: Intake & Output 08/08/18 08/09/18 08/10/18 08/11/18 06:59 06:59 06:59 06:59 Intake Total 3247 204 Balance 3247 204 Weight 71.668 kg Intake: IV Fluids 2527 104 NS (0.9%) 347 IVPB 100 Oral 720 Other: Estimated Void Medium # Voids 0 ADLs: Meal Record Start: 08/09/18 17: 09 Freq: DAILY@0900,1400,1800 Status: Active Protocol: Created 08/09/18 17:09 System (Rec: 08/09/18 17:09 System MED-C05) Document 08/09/18 18:00 [id number] (Rec: 08/10/18 03:18 [id number] MED-C04) Document 08/10/18 09:00 [id number] (Rec: 08/10/18 13:38 [id number] MED-C09) Document 08/10/18 13:37 [id number] (Rec: 08/10/18 13:37 [id number] MED-C11) Document 08/10/18 13:38 [id number] (Rec: 08/10/18 13:38 [id number] MED-C09) Intake and Output Start: 08/09/18 09: 35 Freq: Status: Active Protocol: Created 08/09/18 09:35 System (Rec: 08/09/18 09:35 System ED-C24) Intake and Output Start: 08/09/18 17: 09 Freq: DAILY@0600,1400,2200 Status: Active Protocol: Created 08/09/18 17:09 System (Rec: 08/09/18 17:09 System MED-C05) Document 08/09/18 22:00 [id number] (Rec: 08/09/18 22:02 [id number] MED-C02) Document 08/10/18 05:50 [id number] (Rec: 08/10/18 05:51 [id number] MED-C15) Eyes: No Scleral Icterus Neck: NL Appearance and Movements; NL JVP Cardiovascular: NL Sounds; No Murmurs; No JVD, RRR Respiratory: Clear to Auscultation Extremities: No Edema Neurological: Alert and Oriented x 3 - Assessment Assessment: 77 yo male with pancreatic cancer presents with sepsis, severe weakness and dehydration - Plan Consult Plan (MU): Palliative Plan: Long discussion with pt and about goals and plans for the future. was before and her who had prostate cancer . She was his primary child care center administrator didn't use hospice because pt suddenly with VT. Pt and want to keep him at home. She is a little reluctant to accept help due to cost and she is comfortable caring for him. I did recommend [facility]IM or PATH program( brochure with phone numbers given) if pt is to continue with treatment, dependent on the liver biopsy. If the cancer has progressed we discussed home hospice. Information/benefits about hospice were given. Also discussed the residence if things at home got too stressful. She is interested in getting a hospital bed for him at home, I left a message for case management to talk with her. Pt is eligible for hospice with diagnosis of metastatic pancreatic cancer and failure to thrive. KPS 50%,PPS 50% - Time On Unit Date of Evaluation: 08/10/18 Hospice Consult Time in: 15:00 Hospice Consult Time Out: 16:30 Hospice Consult Time Total: 90 > 50% of Time Spend In Counseling or Coordinating Care: Yes
[2018-08-10] MEDS: Enoxaparin(*) 40 MG/0.4 ML SYR SUBCUT SCH (17:16)
[2018-08-10] MEDS: Allopurinol TAB* 300 MG PO SCH (20:20)
[2018-08-10] MEDS: Acetaminophen TAB* 325 MG PO PRN (21:13)
[2018-08-11] MEDS: ZOSYN 3.375 GM Q8H per EXTENDED INFUSION IVPB SCH ×6 (02:05→17:35)
[2018-08-11] MEDS: Acetaminophen TAB* 325 MG PO PRN ×2 (10:05→15:44)
[2018-08-11] MEDS: NS 0.9% 1000 ML** 1,000 ML IV SCH (10:06)
[2018-08-11] MEDS ORDERED: fentaNYL* 50 MCG/ML 2 ML VIAL (100 MCG VIAL) ONE (11:19)
--- NOTE | 2018-08-11 12:05 | PN ---
Progress Note - Progress Note Date of Service: 08/11/18 SOAP: Subjective: [Patient evaluated post biopsy during which liquid material was aspirated from the liver and sent for culture and cytology. Eduardo reports he is doing well. No pain. No changes. He had an additional fever overnight. Repeat blood cultures drawn yesterday are growing a gram + cocci resembling staph but negative for MSSA and MRSA by PCR. Initial blood cx grew Klebsiella. ] Objective: [ Vital Signs: Temp Pulse Resp BP Pulse Ox 98.2 F 94 18 150/90 92 08/11/18 06:32 08/11/18 06:32 08/11/18 06:32 08/11/18 06:32 08/11/18 06:32 Laboratory Results - last 24 hr 08/09/18 10:39 CA 19-9 Antigen 95 H Acetaminophen (Tylenol Tab*) 650 mg PO Q6H PRN PRN Reason: PAIN/FEVER Last Admin: 08/11/18 10:05 Dose: 650 mg Allopurinol (Zyloprim Tab*) 300 mg PO BEDTIME [facility] Last Admin: 08/10/18 20:20 Dose: 300 mg Enoxaparin Sodium (Lovenox(*)) 40 mg SUBCUT Q24H [facility] Last Admin: 08/10/18 17:16 Dose: 40 mg Heparin Sodium (Porcine) (Heparin Flush Port (Ivad)) 5 ml FLUSH DAILY [facility]; Protocol Last Admin: 08/11/18 10:05 Dose: Not Given Sodium Chloride (Ns 0.9% 1000 Ml) 1,000 mls @ 75 mls/hr IV PER RATE [facility] Last Admin: 08/11/18 10:06 Dose: 75 mls/hr Piperacillin Sod/Tazobactam (Sod 3.375 gm/ Sodium Chloride) 100 mls @ 25 mls/ hr IVPB Q8H [facility] Last Admin: 08/11/18 10:04 Dose: 25 mls/hr Morphine Sulfate (Morphine Oral.Soln 10 Mg*) 15 mg PO Q6H PRN PRN Reason: PAIN Multi-Ingredient Mouthwash/Gargle (Magic Mouth Was-Femi/Maal/Lido*) 5 ml SWISH SPIT QID PRN PRN Reason: mouth sores Pharmacy Consult (Zosyn Per Pharmacy*) 1 note FOLLOW UP .ZOSYN PER [facility]Y [facility] Prochlorperazine (Compazine Tab*) 10 mg PO Q8H PRN PRN Reason: NAUSEA Exam: Gen: Ill and fatigued appearing 77 yo male in NAD HEENT: mildly dry MM CV: RRR, no m/r/g Resp: CTA, no w/c/r Abd: soft, nonTTP Ext: no edema] Assessment: [This is a 77 yo male with diagnosis of limited stage pancreatic CA admitted initially with generalized malaise, but found to be bacteremic. Initial blood cultures grew Klebsiella, a source of infection is not evident on imaging. UA is unremarkable. Repeat blood cx now growing a gram + species which may represent a contaminant. Initial CT suggested growth of liver lesions which have been presumed to be benign as they appear cystic in origin. With new growth however this calls in to question whether they are benign and he had an US guided liver bx today.] Plan: [1. Bacteremia - Klebsiella - repeat blood cx growing gram + organism, neg for MSSA/MRSA by PCR - maybe staph epi? - repeat blood cultures again today from port and periphery - source of infection is not clear, no infectious focus seen on initial imaging and UA negative - liver biopsy resulted in a liquid material which has been sent for cytology and culture, growth in liver lesions may represent abscess - cont Zosyn at this time - consider ID consult 2. Pancreatic CA - regardless of whether the change in the liver represents progressive disease, he has tolerated chemotherapy very poorly - based on liver biospy yielding liquid material this is unlikely to be metastatic disease, repeat Ca19-9 also demonstrates continued decline - pt and his agreed to DNR status yesterday and met with palliative physician - if this represents progressive disease he will not pursue additional therapy, if this biopsy yields benign or infectious etiology will need to evaluate whether he would like to continue treatment based on his performance status following this hospital admission Dispo: cont current inpatient treatment pending liver biopsy and repeat cultures ]
[2018-08-11] MEDS: Enoxaparin(*) 40 MG/0.4 ML SYR SUBCUT SCH (17:37)
[2018-08-11] MEDS: Allopurinol TAB* 300 MG PO SCH (20:38)
[2018-08-12] MEDS: ZOSYN 3.375 GM Q8H per EXTENDED INFUSION IVPB SCH ×6 (01:57→18:24)
[2018-08-12] MEDS: NS 0.9% 1000 ML** 1,000 ML IV SCH ×2 (03:20→21:46)
[2018-08-12 05:39] LABS: ABS Lymphocytes 0.4 10^3/ul (1.0-4.8); ABS Monocytes 0.3 10^3/ul (0-0.8); Eosinophil % 0.3 %; Hematocrit 25 % (42-52); Hemoglobin 8.1 g/dL (14.0-18.0); Lymphocyte % 8.3 %; Mean Corpuscular HGB Conc 33 g/dL (31-36); Mean Corpuscular Hemoglobin 27 pg (27-31); Mean Corpuscular Volume 83 fL (80-94); Nucleated Red Blood Cells % 0.1; Platelet Count 417 10^3/uL (150-450); Red Blood Count 2.94 10^6 /uL (4.18-5.48); Red Cell Distribution Width 20 % (10-15); White Blood Count 4.8 10^3/uL (3.5-10.8)
[2018-08-12 05:51] LABS: Albumin 1.9 g/dL (3.2-5.2); Albumin/Globulin Ratio 0.7 (1-3); BUN/Creatinine Ratio 32.5 (8-20); Calcium 7.4 mg/dL (8.6-10.3); EGFR African American 119.2 (>60); EGFR Non-African American 98.5 (>60); Globulin 2.6 g/dL (2-4); Magnesium 1.7 mg/dL (1.9-2.7); Potassium 3.3 mmol/L (3.5-5.0); Total Bilirubin 0.5 mg/dL (0.2-1.0); Total Protein 4.5 g/dL (6.4-8.9)
[2018-08-12] MEDS ORDERED: Potassium Chlor TAB* 20 MEQ TAB.ER PO ONE (11:11)
--- NOTE | 2018-08-12 13:01 | CONS ---
CONSULTATION REPORT: DATE OF CONSULT: 08/12/18 REQUESTING PHYSICIAN: Dr. Rocha. CONSULTING SERVICE: Infectious Disease. REASON FOR CONSULTATION: Liver abscess. IMPRESSION: 1. Pancreatic cancer with biliary obstruction and biliary stent and multiple large hepatic cysts, increasing in size, felt to be metastatic disease, one was aspirated and shows inflammatory process. Gram stain shows 4+ gram negative rods, the culture is pending. I think most likely this represents secondary infection of existing liver process and supposed to all primary multifocal hepatic abscess. He does have Klebsiella pneumoniae in 1 of 4 blood culture bottles, which may be what grows in the liver as well. 2. Right chest port. 3. Presence of biliary stent. 4. Ongoing chemotherapy. 5. Type 2 diabetes. RECOMMENDATION: Continue Zosyn. Await the culture results from the liver aspiration; assuming it is similar organism, plan prolonged course probably a month of IV antibiotics, though may be changed to oral therapy at some point. HISTORY OF PRESENT ILLNESS: This 77-year-old male with pancreatic cancer and with suspect of having metastatic disease in the liver where he had multiple large cystic lesions. His notes he has had a few days of decreased appetite, some chills. He came to the hospital on 08/09/18, CT showed increase in size of some of the liver lesions. White count was 4. Her admission blood cultures 1 of 4 was positive for Klebsiella pneumoniae. One subsequent culture taken on 08/10/18, 1 of 2 is growing Staph hominis. Because of the increase in size of the liver lesions, she had an ultrasound-guided aspiration. Gram stain shows 4+ gram negative bacilli. Culture is pending. There were 4+ neutrophils as well. He had a T-max of 38.6 overnight. He denies pain and does not have prosthetic material other than the port. PAST MEDICAL HISTORY: 1. Pancreatic cancer with possible liver metastatic disease, treated with chemotherapy. 2. History of biliary obstruction due to pancreatic cancer, status post biliary stent which was exchanged at [place]. 3. Enlarged nodes in the chest on CT scan. 4. Type 2 diabetes. 5. History of ATN. 6. Glaucoma. 7. Hypertension. 8. Mitral insufficiency. 9. Osteoarthritis. 10. Status post tonsillectomy and adenoidectomy. MEDICATIONS: 1. Tylenol. 2. Allopurinol. 3. Enoxaparin. 4. Heparin flush for the port. 5. Morphine oral solution. 6. Zosyn 3.375 g every 8 hours. 7. Prochlorperazine. ALLERGIES: BACITRACIN, NEOMYCIN and POLYMYXIN. FAMILY HISTORY: No recurrent infections. SOCIAL HISTORY: He is a past smoker. He is retired. Lives with his . REVIEW OF SYSTEMS: All negative except as noted above to a 12-point review of systems. PHYSICAL EXAM: Vital Sings: Temperature 36.3, heart rate 90, respiratory rate 18, blood pressure 115/63, oxygen saturation 92% on 5 L. In general, he is awake, not in distress. He is cachectic. Neurologic: He is oriented x3. Follows commands and moves all of his extremities. HEENT: There is no conjunctival hemorrhage. Oropharynx without lesions. Neck: Supple without mass. Heart: Regular rate and rhythm without murmurs, rubs, or gallops. Lungs : Clear to auscultation bilaterally. There is a right chest port without surrounding erythema. Skin: There is no rash or splinter hemorrhage. Abdomen: Mildly distended, it is nontender. There is no rebound. There is bowel sounds present. DIAGNOSTIC STUDIES/LAB DATA: White blood cell count 4.8, hemoglobin 8, platelets 417. Creatinine 0.7. Alkaline phosphatase 257. CRP 152. Bilirubin 0.5. ALT 25. Please see impression and recommendations outlined above. Thank you for asking me to see Mr. Mosley in consultation. [id number]/[facility] #: [id number] MTDD
[2018-08-12] MEDS: Enoxaparin(*) 40 MG/0.4 ML SYR SUBCUT SCH (18:24)
[2018-08-12] MEDS: Allopurinol TAB* 300 MG PO SCH (19:49)
[2018-08-13] MEDS: ZOSYN 3.375 GM Q8H per EXTENDED INFUSION IVPB SCH ×6 (01:14→17:40)
[2018-08-13 06:11] LABS: Hematocrit 27 % (42-52); Mean Corpuscular HGB Conc 33 g/dL (31-36); Mean Corpuscular Hemoglobin 28 pg (27-31); Mean Corpuscular Volume 83 fL (80-94); Mean Platelet Volume 7.6 fL (7.4-10.4); Platelet Count 561 10^3/uL (150-450); Red Blood Count 3.27 10^6 /uL (4.18-5.48); Red Cell Distribution Width 20 % (10-15); White Blood Count 7.7 10^3/uL (3.5-10.8)
[2018-08-13 06:29] LABS: BUN/Creatinine Ratio 36.9 (8-20); Calcium 7.9 mg/dL (8.6-10.3); EGFR African American 144.9 (>60); EGFR Non-African American 119.8 (>60); Potassium 3.3 mmol/L (3.5-5.0)
[2018-08-13 06:36] LABS: ABS Lymphocytes 0.4 10^3/ul (1.0-4.8); ABS Monocytes 0.4 10^3/ul (0-0.8); ABS Neutrophils 6.9 10^3/ul (1.5-7.7); Eosinophil % 0.2 %
[2018-08-13] MEDS: Potassium Chlor TAB* 20 MEQ TAB.ER PO SCH ×2 (10:52→20:25)
[2018-08-13] MEDS: NS 0.9% 1000 ML** 1,000 ML IV SCH (10:52)
[2018-08-13] MEDS: Enoxaparin(*) 40 MG/0.4 ML SYR SUBCUT SCH (17:40)
[2018-08-13] MEDS: Allopurinol TAB* 300 MG PO SCH (20:25)
[2018-08-14] MEDS: NS 0.9% 1000 ML** 1,000 ML IV SCH (00:40)
[2018-08-14] MEDS: ZOSYN 3.375 GM Q8H per EXTENDED INFUSION IVPB SCH ×6 (02:50→17:20)
[2018-08-14 05:24] LABS: BUN/Creatinine Ratio 41.8 (8-20); Calcium 8.3 mg/dL (8.6-10.3); EGFR African American 175.7 (>60); EGFR Non-African American 145.2 (>60); Magnesium 1.8 mg/dL (1.9-2.7); Potassium 3.6 mmol/L (3.5-5.0)
[2018-08-14] MEDS: Potassium Chlor TAB* 20 MEQ TAB.ER PO SCH ×4 (08:07→21:52)
[2018-08-14] MEDS: Furosemide IV* 10 MG/ML VIAL (40 MG) IV SCH (11:21)
[2018-08-14] MEDS: methylPREDNISolone SOD 40 MG* 1 ML VIAL IV SCH (11:21)
[2018-08-14] MEDS: Azithromycin IV(*) 250 MG in NS 0.9% 250 ML* 250 ML IVPB SCH (14:11)
[2018-08-14] MEDS: Enoxaparin(*) 40 MG/0.4 ML SYR SUBCUT SCH (17:20)
[2018-08-14] MEDS: Allopurinol TAB* 300 MG PO SCH (21:27)
[2018-08-15] MEDS: ZOSYN 3.375 GM Q8H per EXTENDED INFUSION IVPB SCH ×6 (02:05→20:00)
[2018-08-15 05:02] LABS: Hematocrit 27 % (42-52); Hemoglobin 8.9 g/dL (14.0-18.0); Mean Corpuscular HGB Conc 33 g/dL (31-36); Mean Corpuscular Hemoglobin 28 pg (27-31); Mean Corpuscular Volume 85 fL (80-94); Mean Platelet Volume 7.7 fL (7.4-10.4); Platelet Count 495 10^3/uL (150-450); Red Blood Count 3.17 10^6 /uL (4.18-5.48); Red Cell Distribution Width 21 % (10-15); White Blood Count 9.8 10^3/uL (3.5-10.8)
[2018-08-15 05:20] LABS: BUN/Creatinine Ratio 45.6 (8-20); Calcium 8.2 mg/dL (8.6-10.3); EGFR African American 168.6 (>60); EGFR Non-African American 139.4 (>60); Potassium 3.7 mmol/L (3.5-5.0)
[2018-08-15 05:37] LABS: ABS Lymphocytes 0.9 10^3/ul (1.0-4.8); ABS Monocytes 0.7 10^3/ul (0-0.8); ABS Neutrophils 8.2 10^3/ul (1.5-7.7); Eosinophil % 0.1 %; Lymphocyte % 8.7 %
[2018-08-15] MEDS: Potassium Chlor TAB* 20 MEQ TAB.ER PO SCH ×2 (09:17→20:33)
[2018-08-15] MEDS: methylPREDNISolone SOD 40 MG* 1 ML VIAL IV SCH (09:19)
[2018-08-15] MEDS: Furosemide IV* 10 MG/ML VIAL (40 MG) IV SCH (09:19)
[2018-08-15] MEDS: Azithromycin IV(*) 250 MG in NS 0.9% 250 ML* 250 ML IVPB SCH (14:35)
[2018-08-15] MEDS: Enoxaparin(*) 40 MG/0.4 ML SYR SUBCUT SCH (16:17)
--- NOTE | 2018-08-15 19:09 | PN ---
Progress Note - Progress Note Date of Service: 08/15/18 SOAP: Subjective: []Reports after last chemotherapy he developed progressive fatigue. Presented to office, admission with bacteremia and Bx of liver cyst + abscess. Today getting better but still very weak. He is eating more. Moving in bed and doing exercises, can sit in chair but cannot walk. Has had some SOB. No abdominal pain. No fevers or chills. Acetaminophen (Tylenol Tab*) 650 mg PO Q6H PRN PRN Reason: PAIN/FEVER Last Admin: 08/11/18 15:44 Dose: 650 mg Allopurinol (Zyloprim Tab*) 300 mg PO BEDTIME [facility] Last Admin: 08/14/18 21:27 Dose: 300 mg Enoxaparin Sodium (Lovenox(*)) 40 mg SUBCUT Q24H [facility] Last Admin: 08/15/18 16:17 Dose: 40 mg Furosemide (Lasix Iv*) 20 mg IV DAILY [facility] Last Admin: 08/15/18 09:19 Dose: 20 mg Heparin Sodium (Porcine) (Heparin Flush Port (Ivad)) 5 ml FLUSH DAILY [facility]; Protocol Last Admin: 08/15/18 09:19 Dose: Not Given Piperacillin Sod/Tazobactam (Sod 3.375 gm/ Sodium Chloride) 100 mls @ 25 mls/ hr IVPB Q8H [facility] Last Admin: 08/15/18 09:19 Dose: 25 mls/hr Azithromycin 250 mg/ Sodium (Chloride) 250 mls @ 250 mls/hr IVPB Q24H [facility] Last Admin: 08/15/18 14:35 Dose: 250 mls/hr Methylprednisolone Sodium Succinate (Solu-Medrol 40 Mg) 40 mg IV DAILY [facility] Last Admin: 08/15/18 09:19 Dose: 40 mg Morphine Sulfate (Morphine Oral.Soln 10 Mg*) 15 mg PO Q6H PRN PRN Reason: PAIN Multi-Ingredient Mouthwash/Gargle (Magic Mouth Was-Femi/Maal/Lido*) 5 ml SWISH SPIT QID PRN PRN Reason: mouth sores Pharmacy Consult (Zosyn Per Pharmacy*) 1 note FOLLOW UP .ZOSYN PER PHARMACY [facility] Potassium Chloride (Klor Con Er Tab*) 20 meq PO BID [facility] Last Admin: 08/15/18 09:17 Dose: 20 meq Prochlorperazine (Compazine Tab*) 10 mg PO Q8H PRN PRN Reason: NAUSEA Objective: [] Vital Signs Temp Pulse Resp BP Pulse Ox 97.0 F 71 18 124/80 96 08/15/18 16:00 08/15/18 16:00 08/15/18 16:00 08/15/18 16:00 08/15/18 16:00 Exam: Gen: Ill and fatigued appearing 77 yo male in NAD thin HEENT: mildly dry MM CV: RRR, no m/r/g Resp: CTA, no w/c/r, RR increased Abd: soft, distended, NT and +BS Ext: +1 LALO scrape on R elbow Assessment: [This is a 77 yo male with diagnosis of limited stage pancreatic CA admitted initially with generalized malaise, but found to be bacteremic. Ascending cholangitis with infection of hepatic cysts. Cultures grew Klebsiella and staph hominis. Now on IV antibiotics. Discussed overall prognosis and therapy for cancer. His cancer has responded to chemotherapy but QOL has been a challenge from the start. He is to weak to receive additional therapy for his cancer. Discussed that goal is QOL and plan at this time is transition to hospice. I did not rule out therpy in future if he is much stronger in the future then he is today. Both patent and understand prognosis. He wants to go home with hospice and that is a reasonable goal. Plan: [1. Liver Abscess. - Continue Zosyn and Azithromycin today - Follow up ID tomorrow to focus antibiotics 2. Pancreatic CA. Continue therapy for infection but likely hospice consultation before discharge. 3. Disp. Will depend on length if IV Abx and recovery. NHP with rehab or home. 4. Protein/calorie malnutrition. Encouraged po intake. 5. Anemia from chronic disease, Ferritin > 1000. 6. DNR time with patient and chart 45 min
[2018-08-15] MEDS: Allopurinol TAB* 300 MG PO SCH (20:33)
[2018-08-16] MEDS: ZOSYN 3.375 GM Q8H per EXTENDED INFUSION IVPB SCH ×4 (00:54→09:29)
[2018-08-16] MEDS: Potassium Chlor TAB* 20 MEQ TAB.ER PO SCH ×2 (09:26→21:39)
[2018-08-16] MEDS: Furosemide IV* 10 MG/ML VIAL (40 MG) IV SCH (09:28)
[2018-08-16] MEDS: methylPREDNISolone SOD 40 MG* 1 ML VIAL IV SCH (09:29)
[2018-08-16] MEDS: predniSONE TAB* 20 MG PO SCH (10:01)
[2018-08-16] MEDS: Azithromycin IV(*) 250 MG in NS 0.9% 250 ML* 250 ML IVPB SCH (14:21)
--- NOTE | 2018-08-16 15:41 | PN ---
Progress Note - Progress Note Date of Service: 08/16/18 SOAP: Subjective: CC: liver abscess HPI:77 year old man with pancreatic cancer, biliary stent and multiple cystic liver lesions now with fever and malaise, Klebsiella in blood, same organism from aspirate of liver lesion. Energy a little better, no fever or diarrhea. No pain. Objective: Vital Signs Temp 35.9 C 08/16/18 07:00 Pulse 80 08/16/18 07:00 Resp 16 08/16/18 08:00 BP 140/82 08/16/18 07:00 Pulse Ox 95 08/16/18 07:00 Intake & Output 08/15/18 08/16/18 08/16/18 18:59 06:59 18:59 Intake Total 110 276 Output Total 375 200 Balance -265 76 Intake: IV Fluids 40 NS (0.9%) 40 IVPB 126 ABX - ZOSYN 126 Oral 110 110 Output: Urine 375 200 Other: Estimated Void Large Small # Bowel Movements 1 Estimated Stool Amount Large # Voids 1 Gen:awake, no distress HEENT: no thrush Heart:RRR no murmur Lungs:CTA BL Abd:+BS NT ND soft Skin: no rash Microbiology 08/11/18 13:15 Aerobic Blood Culture - Final Blood Line No Growth Day 5 Anaerobic Blood Culture - Final No Growth Day 5 08/11/18 12:36 Aerobic Blood Culture - Final Blood Venous No Growth Day 5 Anaerobic Blood Culture - Final No Growth Day 5 Assessment: 1. Klebsiella liver abscess, likely secondary infection of hepatic cyst 2. pancreatic cancer w obstruction s/p biliary stent 3. right chest port 4. T2DM Plan: change zosyn to ceftriaxone 1 gm daily , day 09/18 and follow up imaging at the end of treatment, will add on crp to yesterday's labs
[2018-08-16] MEDS: Enoxaparin(*) 40 MG/0.4 ML SYR SUBCUT SCH (15:57)
[2018-08-16] MEDS: cefTRIAXone(*) 1 GM in NS 0.9% 50 ML* 50 ML IVPB SCH (15:57)
--- NOTE | 2018-08-16 16:25 | CONSULT ---
Subjective Date of Service: 08/16/18 Interval History: Mr. Mosley is a 77 yo male with PMH significant for pancreatic cancer with biliary obstruction s/p biliary stent, DM2, glaucoma, HTN, mitral valve insufficiency, and osteoarthritis; who presented to the hospital with decreased appetite and chills. He was found to have Klebsiella pneumoniae bacteremia and liver abscess. He was reported to have multiple abrasions to his arms and a red and blanchable buttocks on admission. Patient seen and examined at bedside. Family History: Unchanged from Admission Social History: Unchanged from Admission Past Medical History: Unchanged from Admission Review of Systems - Measurements Intake and Output: Intake and Output Last 24 Hours 08/14/18 08/15/18 08/16/18 08/17/18 06:59 06:59 06:59 06:59 Intake Total 5052 730 386 Output Total 500 1125 575 Balance 4552 -395 -189 Intake: IV Fluids 3412 30 40 NS (0.9%) 3412 30 40 IVPB 435 100 126 ABX - ZOSYN 200 100 126 abx 235 Oral 1205 600 220 Output: Urine 500 1125 575 Other: Estimated Void Large Small Small Date of Last Bowel 08/14/18 Movement # Bowel Movements 0 1 1 Estimated Stool Amount Medium Medium Large # Voids 1 1 1 - Review of Systems Constitutional Symptoms: Negative: Fever, Other - Chills Dermatology: Positive: Other - Abrasions to arms Endocrinology: Positive: Diabetes Mellitus Objective Active Medications: Acetaminophen (Tylenol Tab*) 650 mg PO Q6H PRN Reason: PAIN/FEVER Allopurinol (Zyloprim Tab*) 300 mg PO BEDTIME [facility] Enoxaparin Sodium (Lovenox(*)) 40 mg SUBCUT Q24H [facility] Furosemide (Lasix Iv*) 20 mg IV DAILY [facility] Heparin Sodium (Porcine) (Heparin Flush Port (Ivad)) 5 ml FLUSH DAILY [facility]; Protocol Azithromycin 250 mg/ Sodium (Chloride) 250 mls @ 250 mls/hr IVPB Q24H [facility] Ceftriaxone Sodium 1 gm/ (Sodium Chloride) 50 mls @ 200 mls/hr IVPB Q24H [facility] Multi-Ingredient Mouthwash/Gargle (Magic Mouth Was-Femi/Maal/Lido*) 5 ml SWISH SPIT QID PRN Reason: mouth sores Potassium Chloride (Klor Con Er Tab*) 20 meq PO BID [facility] Prednisone (Deltasone Tab*) 20 mg PO DAILY [facility] Prochlorperazine (Compazine Tab*) 10 mg PO Q8H PRN Reason: NAUSEA 08/16/18 07:00 Temperature 96.7 F Pulse Rate 80 Respiratory 18 Rate Blood Pressure 140/82 (mmHg) Blood Pressure 101 Mean O2 Sat by Pulse 95 Oximetry Patient on Room No: 7L Air Oxygen Devices in Use Now: OxyMask Appearance: NAD, sitting up in bed Ears/Nose/Mouth/Throat: Mucous Membranes Moist Respiratory: Symmetrical Chest Expansion and Respiratory Effort Skin: - - See skin note below Neurological: Alert and Oriented x 3 - Nutrition: Malnutrition Diagnosis/Plan Malnutrition Assessment by Registered Dietitian: Malnutrition Assessment Clinical Characteristics Chronic,Severe Malnutrition Assessment: - Moderate to severe temporal muscle wasting Criteria - 45# (22%) wt loss < 3 months - < 75% estimated energy expenditure for 1 month Malnutrition Assessment: Per discussion w/ pt/, will add: Interventions - Mechanical ground textures to ease chewing - Vanilla Ensure Enlive w/ meals (350 kcals, 20 grams protein per serving) Malnutrition Assessment: Goals 1. Intake will improve to promote lean body mass repletion, maintain hydration, and prevent additional wt loss 2. Pt will tolerate mechanical ground textures w /o chewing difficulty Result Diagrams: 08/19/18 10:24 08/19/18 10:24 Microbiology and Other Data: Microbiology 08/11/18 13:15 Aerobic Blood Culture - Final Blood Line No Growth Day 5 Anaerobic Blood Culture - Final No Growth Day 5 08/11/18 12:36 Aerobic Blood Culture - Final Blood Venous No Growth Day 5 Anaerobic Blood Culture - Final No Growth Day 5 08/11/18 11:20 Wound Gram Stain - Final Tissue Tissue Culture - Final Klebsiella Pneumoniae Acid Fast Bacilli Smear - Final 08/10/18 05:53 Aerobic Blood Culture - Final Blood Venous Staphylococcus Hominis Anaerobic Blood Culture - Final No Growth Day 5 Blood MRSA/MSSA (PCR) - Final Mrsa Negative S.aureus Negative 08/09/18 11:02 Aerobic Blood Culture - Final Blood Venous No Growth Day 5 Anaerobic Blood Culture - Final No Growth Day 5 08/09/18 10:40 Aerobic Blood Culture - Final Blood Venous No Growth Day 5 Anaerobic Blood Culture - Final Klebsiella Pneumoniae 08/10/18 19:00 Stool Occult Blood (TA) - Final Stool 08/09/18 11:56 Urine Culture - Final Urine No Growth (<1,000 CFU/mL) Skin Deviation Note - Skin Deviation Findings Right elbow - There are 3 wounds. The largest measures 2 cm x 1.5 cm x 0.1 cm the wound base has some yellow slough in the wound base, the surrounding skin has erythema. There is a smaller scabbed area on the arm, measuring 1 cm x 0.7 cm. There is also a small scab on the elbow. There is no drainage noted. Left arm - There is a superficial wound, measures 3 cm x 1.5 cm x 0.1 cm. The wound base is pink granulation tissue, there is about 50% of the skin flap in pace over the wound. There is no surrounding erythema. Not pictured. Sacrum with blanchable erythema. Assessment/Plan: Mr. Mosley is a 77 yo male with PMH significant for pancreatic cancer with biliary obstruction s/p biliary stent, DM2, glaucoma, HTN, mitral valve insufficiency, and osteoarthritis; who presented to the hospital with decreased appetite and chills. He also presented to the hospital with multiple abrasions to his arms and redness to his buttocks. 1. Right arm abrasions. Recommend applying triple ABX ointment to the areas, followed by telfa and rolled gauze; change daily. Due to the skin being fragile , do not apply tape to the skin. 2. Left arm skin tear. Recommend applying a border foam gauze (Optifoam), change every 3 days. 3. Blanchable skin to the buttocks. Recommend applying barrier cream (blue top) . Frequent turning and repositioning. 4. Chronic severe protein calorie malnutrition. Evidenced by moderate to severe temporal muscle wasting, 45 pound (22%) wt loss < 3 months, < 75% estimated energy expenditure for 1 month. Prealbumin was 4 on 08/09/18. 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 5. DM2. HgA1C was 7.2 on 07/11/18. Maintain good glycemic control to allow for wound healing. 6. Diet. Mechanical soft diet. 7. Code Status. DNR 8. Disposition. Inpatient, disposition per primary medicine team. TIME SPENT: Time spent on this wound consultation was 20 minutes and 10 minutes was spent with the patient and discussing past medical history; assessing, measuring, and photographing the wounds; removing and reapplying the dressings. Wound Problem/Plan Is Patient a Wound Clinic Patient: No Attending: Danielle Carroll
[2018-08-16 16:43] LABS: C Reactive Protein 109.57 mg/L (<8.01)
[2018-08-16] MEDS: Allopurinol TAB* 300 MG PO SCH (21:39)
[2018-08-17] MEDS: predniSONE TAB* 20 MG PO SCH (07:12)
[2018-08-17] MEDS: Potassium Chlor TAB* 20 MEQ TAB.ER PO SCH ×2 (07:12→21:05)
[2018-08-17] MEDS: Furosemide IV* 10 MG/ML VIAL (40 MG) IV SCH (07:12)
--- NOTE | 2018-08-17 09:47 | PN ---
Progress Note - Progress Note Date of Service: 08/17/18 SOAP: Subjective: [Continued improvement. Working with PT, up in his recliner for 1.5 hrs yesterday. Appetite is improving and eating in much larger volumes. No new complaints.] Objective: [ Laboratory Results - last 24 hr 08/15/18 04:50 Sodium 136 Potassium 3.7 Chloride 107 Carbon Dioxide 22 Anion Gap 7 BUN 26 H Creatinine 0.57 L Est GFR ( Amer) 168.6 Est GFR (Non-Af Amer) 139.4 BUN/Creatinine Ratio 45.6 H Glucose 167 H Calcium 8.2 L C-Reactive Protein 109.57 H Acetaminophen (Tylenol Tab*) 650 mg PO Q6H PRN PRN Reason: PAIN/FEVER Last Admin: 08/11/18 15:44 Dose: 650 mg Allopurinol (Zyloprim Tab*) 300 mg PO BEDTIME [facility] Last Admin: 08/16/18 21:39 Dose: 300 mg Enoxaparin Sodium (Lovenox(*)) 40 mg SUBCUT Q24H [facility] Last Admin: 08/16/18 15:57 Dose: 40 mg Furosemide (Lasix Iv*) 20 mg IV DAILY [facility] Last Admin: 08/17/18 07:12 Dose: 20 mg Azithromycin 250 mg/ Sodium (Chloride) 250 mls @ 250 mls/hr IVPB Q24H [facility] Last Admin: 08/16/18 14:21 Dose: 250 mls/hr Ceftriaxone Sodium 1 gm/ (Sodium Chloride) 50 mls @ 200 mls/hr IVPB Q24H [facility] Last Admin: 08/16/18 15:57 Dose: 200 mls/hr Multi-Ingredient Mouthwash/Gargle (Magic Mouth Was-Femi/Maal/Lido*) 5 ml SWISH SPIT QID PRN PRN Reason: mouth sores Potassium Chloride (Klor Con Er Tab*) 20 meq PO BID [facility] Last Admin: 08/17/18 07:12 Dose: 20 meq Prednisone (Deltasone Tab*) 20 mg PO DAILY [facility] Last Admin: 08/17/18 07:12 Dose: 20 mg Prochlorperazine (Compazine Tab*) 10 mg PO Q8H PRN PRN Reason: NAUSEA Vital Signs: Temp Pulse Resp BP Pulse Ox 97.9 F 71 20 132/72 96 08/17/18 07:08 06/26/19 07:08 08/17/18 07:23 08/17/18 07:08 08/17/18 07:23 Exam: Gen: Ill and fatigued appearing 77 yo male in NAD, accompanied by his HEENT: MMM, few white exudates c/w thrush CV: RRR, no m/r/g Resp: few rhonchi at lung bases, R>L Abd: soft, nonTTP Ext: trace edema at ankles bilaterally] Assessment: [This is a 77 yo male with diagnosis of limited stage pancreatic CA admitted initially with generalized malaise, but found to be bacteremic. Initial blood cultures grew Klebsiella, source eventually found to be a liver abscess, cx from aspiration also grew Klebsiella. Now improving on IV abx. Plan: [1. Klebsiella bacteremia secondary to liver abscess - ID consultation appreciated - recommendation for 4 weeks of IV abx, switched to daily ceftriaxone 08/16 - today day 10/19 (thru Sep 07) - will likely defer repeat imaging at that time unless patient is interested in resuming chemotherapy - order for PICC placement for home abx 2. Hypoxia - likely due to fluid overload and atelectasis, improving with diuresis - cont lasix 20 mg q am - cont to down titrate supp O2 3. Thrush - start nystatin swish/spit 4. Malnutrition, severe protein deficiency - cachetic on exam, albumin 1.9 - oral intake improving 5. Pancreatic CA - no evidence of progressive dz, but has tolerated tx very poorly - plan to transition to Hospice following treatment of acute infection 6. DNR Dispo: cont to diuresis and wean from O2, working with PT, goal for dc home with Hospice services - but will complete full course of IV abx, CM involved to help coordinate
[2018-08-17] MEDS: Nystatin SUSPENSION* 100000 UNITS/ML 5 ML UDC PO SCH ×3 (11:58→21:05)
[2018-08-17] MEDS: Azithromycin IV(*) 250 MG in NS 0.9% 250 ML* 250 ML IVPB SCH (14:14)
[2018-08-17] MEDS: cefTRIAXone(*) 1 GM in NS 0.9% 50 ML* 50 ML IVPB SCH (15:30)
[2018-08-17] MEDS: Enoxaparin(*) 40 MG/0.4 ML SYR SUBCUT SCH (16:11)
[2018-08-17] MEDS: Allopurinol TAB* 300 MG PO SCH (21:05)
[2018-08-18 06:23] LABS: Hematocrit 29 % (42-52); Hemoglobin 9.2 g/dL (14.0-18.0); Mean Corpuscular HGB Conc 32 g/dL (31-36); Mean Corpuscular Hemoglobin 27 pg (27-31); Mean Corpuscular Volume 85 fL (80-94); Platelet Count 531 10^3/uL (150-450); Red Blood Count 3.43 10^6 /uL (4.18-5.48); Red Cell Distribution Width 22 % (10-15); White Blood Count 16.5 10^3/uL (3.5-10.8)
[2018-08-18 06:33] LABS: Albumin/Globulin Ratio 0.6 (1-3); BUN/Creatinine Ratio 58.3 (8-20); Calcium 8.7 mg/dL (8.6-10.3); EGFR African American 286.6 (>60); EGFR Non-African American 236.8 (>60); Globulin 3.1 g/dL (2-4); Magnesium 1.8 mg/dL (1.9-2.7); Potassium 4.1 mmol/L (3.5-5.0); Total Bilirubin 0.4 mg/dL (0.2-1.0); Total Protein 5.1 g/dL (6.4-8.9)
[2018-08-18 09:03] LABS: ABS Lymphocytes 1.1 10^3/ul (1.0-4.8); ABS Monocytes 0.7 10^3/ul (0-0.8); ABS Neutrophils 14.8 10^3/ul (1.5-7.7); Eosinophil % 0.3 %; Lymphocyte % 6.4 %; Nucleated Red Blood Cells % 0.1
[2018-08-18] MEDS: Furosemide IV* 10 MG/ML VIAL (40 MG) IV SCH (09:08)
[2018-08-18] MEDS: Nystatin SUSPENSION* 100000 UNITS/ML 5 ML UDC PO SCH ×4 (09:08→20:48)
[2018-08-18] MEDS: predniSONE TAB* 20 MG PO SCH (09:10)
[2018-08-18] MEDS: Potassium Chlor TAB* 20 MEQ TAB.ER PO SCH ×2 (09:10→20:48)
--- NOTE | 2018-08-18 09:34 | PN ---
Progress Note - Progress Note Date of Service: 08/18/18 SOAP: Subjective: []Feeling OK, however still very tired. Eating a little better, but still with poor PO intake overall. Discussed recommendation from ID to consider liver abscess drain placement, reviewed potential benefit vs. possible risks. Wants to remain proactive in attempting to resolve current infection. Ultimately he understands that he may not have any significant improvement in function and will need the best supportive services we can provide. Medications: Acetaminophen (Tylenol Tab*) 650 mg PO Q6H PRN PRN Reason: PAIN/FEVER Last Admin: 08/11/18 15:44 Dose: 650 mg Allopurinol (Zyloprim Tab*) 300 mg PO BEDTIME [facility] Last Admin: 08/17/18 21:05 Dose: 300 mg Enoxaparin Sodium (Lovenox(*)) 40 mg SUBCUT Q24H [facility] Last Admin: 08/17/18 16:11 Dose: 40 mg Furosemide (Lasix Iv*) 20 mg IV DAILY [facility] Last Admin: 08/18/18 09:08 Dose: 20 mg Heparin Sodium (Porcine) (Heparin Flush Port (Ivad)) 5 ml FLUSH DAILY [facility]; Protocol Last Admin: 08/18/18 09:09 Dose: 5 ml Azithromycin 250 mg/ Sodium (Chloride) 250 mls @ 250 mls/hr IVPB Q24H [facility] Last Admin: 08/17/18 14:14 Dose: 250 mls/hr Ceftriaxone Sodium 1 gm/ (Sodium Chloride) 50 mls @ 200 mls/hr IVPB Q24H [facility] Last Admin: 08/17/18 15:30 Dose: 200 mls/hr Multi-Ingredient Mouthwash/Gargle (Magic Mouth Was-Femi/Maal/Lido*) 5 ml SWISH SPIT QID PRN PRN Reason: mouth sores Nystatin (Nystatin Suspension*) 500,000 units PO QID [facility] Stop: 08/24/18 09:39 Last Admin: 08/18/18 09:08 Dose: 500,000 units Potassium Chloride (Klor Con Er Tab*) 20 meq PO BID [facility] Last Admin: 08/18/18 09:10 Dose: 20 meq Prednisone (Deltasone Tab*) 20 mg PO DAILY [facility] Last Admin: 08/18/18 09:10 Dose: 20 mg Prochlorperazine (Compazine Tab*) 10 mg PO Q8H PRN PRN Reason: NAUSEA Objective: [] Vital Signs Temp Pulse Resp BP Pulse Ox 96.8 F 92 16 156/95 96 08/18/18 03:10 08/18/18 03:10 08/18/18 03:10 08/18/18 03:10 08/18/18 03:10 A&Ox3, EOMI, NESS however notably weak +Cachecia HRR, S1S2 RCW port benign LS clear +BS, abd. soft and non-tender Laboratory Results - last 24 hr 08/18/18 08/18/18 05:58 05:58 WBC 16.5 H RBC 3.43 L Hgb 9.2 L Hct 29 L MCV 85 MCH 27 MCHC 32 RDW 22 H Plt Count 531 H D MPV 8.0 Neut % (Auto) 89.3 Lymph % (Auto) 6.4 [place] % (Auto) 3.9 Eos % (Auto) 0.3 Baso % (Auto) 0.1 Absolute Neuts (auto) 14.8 H Absolute Lymphs (auto) 1.1 Absolute Monos (auto) 0.7 Absolute Eos (auto) 0.0 Absolute Basos (auto) 0.0 Absolute Nucleated RBC 0.0 Immature Gran % 2.0 Neutrophils % 86.0 Lymphocytes % 5.0 Reactive Lymphs % 1.0 Monocytes % 6.0 Myelocytes % 1.0 Promyelocytes % 1.0 Nucleated RBC % 0.1 Normal RBC Morphology Not Reportable Hypochromasia 1+ Sodium 135 Potassium 4.1 Chloride 104 Carbon Dioxide 26 Anion Gap 5 BUN 21 Creatinine 0.36 L Est GFR ( Amer) 286.6 Est GFR (Non-Af Amer) 236.8 BUN/Creatinine Ratio 58.3 H Glucose 108 H Calcium 8.7 Magnesium 1.8 L Total Bilirubin 0.40 AST 22 ALT 21 Alkaline Phosphatase 360 H Total Protein 5.1 L Albumin 2.0 L Globulin 3.1 Albumin/Globulin Ratio 0.6 L Assessment: []77 yo male with locally advanced pancreatic CA s/p C3 [place]/Abraxane with good response in Ca 19-9, however progressive decline over 3 weeks prior to presentation with severe malaise found to be bacteremic with Kleb.Pneumo felt secondary to liver abscess. He was initially improving on IV abx., however now with rising WBC and discussion with ID recommends consideration of peripheral drain. Plan: []1. Klebsiella bacteremia secondary to liver abscess - ID consultation appreciated, recommend peripheral drain d/t recurrent leukocytosis, pt. agreeable - 4 weeks of IV abx, switched to daily ceftriaxone 08/16 - today day 9 28 ( thru Sep 07) 2. Hypoxia: 2/2 FVO and atelectasis - repeat CXR today - s/p 4 days Azithromycin, d/c - cont lasix 20 mg q am - titrate O2 down 3. Thrush: cont. nystatin swish/spit 4. Severe protein-caloric malnutrition: cont. supplemental protein drinks 5. Pancreatic CA - no evidence of progressive dz, however marked decline and is not currently a candidate for further tx. - plan to complete abx. and start best supportive care with hospice, if marked improvement can reconsider tx. though unfortunately I do not suspect this will be the case DNR Dispo: once stabilized plan for home with IV abx. to complete 4 weeks with VNS and palliative services then sign onto hospice
--- NOTE | 2018-08-18 10:17 | PN ---
Progress Note - Progress Note Date of Service: 08/18/18 SOAP: Subjective: CC: Liver abscess HPI: Mr. Mosley is a 77 year old male with PMH significant for glaucoma, HTN, osteoarthritis, pancreatic cancer, biliary stent and multiple cystic liver lesions. Continues to feel weak. Denies pain, fever, chills, shortness of breath , nausea, vomiting, diarrhea or urinary symptoms. Objective: Vital Signs - 8 hr 08/18/18 03:10 Temperature 96.8 F Pulse Rate 92 Respiratory 16 Rate Blood Pressure 156/95 (mmHg) O2 Sat by Pulse 96 Oximetry Physical Exam: General: NAD, frail appearing, sitting up in bed Neurological: Alert and Oriented Cardiovascular: Heart rate regular, no murmur Respiratory: Lung sounds clear, diminished Abdominal: Bowel sounds present; ABD soft, non tender and non distended Skin: No rash. Multiple abrasions and skin tears to bilateral arms Laboratory Results - last 24 hr 08/18/18 08/18/18 05:58 05:58 WBC 16.5 H RBC 3.43 L Hgb 9.2 L Hct 29 L MCV 85 MCH 27 MCHC 32 RDW 22 H Plt Count 531 H D MPV 8.0 Neut % (Auto) 89.3 Lymph % (Auto) 6.4 [place] % (Auto) 3.9 Eos % (Auto) 0.3 Baso % (Auto) 0.1 Absolute Neuts (auto) 14.8 H Absolute Lymphs (auto) 1.1 Absolute Monos (auto) 0.7 Absolute Eos (auto) 0.0 Absolute Basos (auto) 0.0 Absolute Nucleated RBC 0.0 Immature Gran % 2.0 Neutrophils % 86.0 Lymphocytes % 5.0 Reactive Lymphs % 1.0 Monocytes % 6.0 Myelocytes % 1.0 Promyelocytes % 1.0 Nucleated RBC % 0.1 Normal RBC Morphology Not Reportable Hypochromasia 1+ Sodium 135 Potassium 4.1 Chloride 104 Carbon Dioxide 26 Anion Gap 5 BUN 21 Creatinine 0.36 L Est GFR ( Amer) 286.6 Est GFR (Non-Af Amer) 236.8 BUN/Creatinine Ratio 58.3 H Glucose 108 H Calcium 8.7 Magnesium 1.8 L Total Bilirubin 0.40 AST 22 ALT 21 Alkaline Phosphatase 360 H Total Protein 5.1 L Albumin 2.0 L Globulin 3.1 Albumin/Globulin Ratio 0.6 L Microbiology 08/11/18 13:15 Aerobic Blood Culture - Final Blood Line No Growth Day 5 Anaerobic Blood Culture - Final No Growth Day 5 08/11/18 12:36 Aerobic Blood Culture - Final Blood Venous No Growth Day 5 Anaerobic Blood Culture - Final No Growth Day 5 08/11/18 11:20 Wound Gram Stain - Final Tissue Tissue Culture - Final Klebsiella Pneumoniae Acid Fast Bacilli Smear - Final 08/10/18 05:53 Aerobic Blood Culture - Final Blood Venous Staphylococcus Hominis Anaerobic Blood Culture - Final No Growth Day 5 Blood MRSA/MSSA (PCR) - Final Mrsa Negative S.aureus Negative 08/09/18 11:02 Aerobic Blood Culture - Final Blood Venous No Growth Day 5 Anaerobic Blood Culture - Final No Growth Day 5 08/09/18 10:40 Aerobic Blood Culture - Final Blood Venous No Growth Day 5 Anaerobic Blood Culture - Final Klebsiella Pneumoniae 08/10/18 19:00 Stool Occult Blood (TA) - Final Stool 08/09/18 11:56 Urine Culture - Final Urine No Growth (<1,000 CFU/mL) Assessment: 1. Klebsiella liver abscess, likely secondary infection of hepatic cyst. Afebrile, leukocytosis has returned with WBC 16.5 today. No new signs of infection. 2. Pancreatic cancer w obstruction s/p biliary stent. 3. Right chest power port. 4. DM2. Plan: Continue ceftriaxone 1 gm daily, day 11/19 and follow up imaging at the end of treatment. Discussed with Margaret Nassar regarding possible need for a drain to be placed in the liver to drain the abscess, she will discuss with IR.
[2018-08-18] MEDS: cefTRIAXone(*) 1 GM in NS 0.9% 50 ML* 50 ML IVPB SCH (15:03)
[2018-08-18] MEDS: Enoxaparin(*) 40 MG/0.4 ML SYR SUBCUT SCH (16:39)
[2018-08-18] MEDS: Allopurinol TAB* 300 MG PO SCH (20:48)
[2018-08-19] MEDS: Furosemide IV* 10 MG/ML VIAL (40 MG) IV SCH (09:55)
[2018-08-19] MEDS: predniSONE TAB* 20 MG PO SCH (09:57)
[2018-08-19] MEDS: Nystatin SUSPENSION* 100000 UNITS/ML 5 ML UDC PO SCH ×4 (09:57→22:10)
[2018-08-19] MEDS: Potassium Chlor TAB* 20 MEQ TAB.ER PO SCH ×2 (09:57→22:10)
[2018-08-19 11:01] LABS: Hematocrit 30 % (42-52); Hemoglobin 9.1 g/dL (14.0-18.0); Mean Corpuscular HGB Conc 31 g/dL (31-36); Mean Corpuscular Hemoglobin 26 pg (27-31); Mean Corpuscular Volume 85 fL (80-94); Mean Platelet Volume 8.3 fL (7.4-10.4); Platelet Count 471 10^3/uL (150-450); Red Blood Count 3.45 10^6 /uL (4.18-5.48); Red Cell Distribution Width 22 % (10-15); White Blood Count 19.5 10^3/uL (3.5-10.8)
[2018-08-19 11:10] LABS: Albumin/Globulin Ratio 0.6 (1-3); BUN/Creatinine Ratio 44.7 (8-20); Calcium 8.6 mg/dL (8.6-10.3); EGFR African American 269.2 (>60); EGFR Non-African American 222.5 (>60); Globulin 3.1 g/dL (2-4); Potassium 3.8 mmol/L (3.5-5.0); Total Bilirubin 0.4 mg/dL (0.2-1.0); Total Protein 5.1 g/dL (6.4-8.9)
[2018-08-19 11:43] LABS: ABS Lymphocytes 1.1 10^3/ul (1.0-4.8); ABS Monocytes 0.8 10^3/ul (0-0.8); ABS Neutrophils 17.7 10^3/ul (1.5-7.7); Eosinophil % 0.1 %; Lymphocyte % 5.4 %; Nucleated Red Blood Cells % 0.1
[2018-08-19 11:46] LABS: Polychromasia 1+
[2018-08-19] MEDS: cefTRIAXone(*) 1 GM in NS 0.9% 50 ML* 50 ML IVPB SCH (15:32)
[2018-08-19] MEDS: Enoxaparin(*) 40 MG/0.4 ML SYR SUBCUT SCH (17:22)
--- NOTE | 2018-08-19 21:30 | PN ---
Progress Note - Progress Note Date of Service: 08/19/18 SOAP: Subjective: [Patient underwent aspiration of an additional 40 mL of purulent fluid from the liver yesterday after he had a significant rise in WBC. He reports feeling fine. No abd pain. Appetite is still good.] Objective: [ Vital Signs: Temp Pulse Resp BP Pulse Ox 97.9 F 86 18 136/80 96 08/19/18 16:25 08/19/18 16:25 08/19/18 16:25 08/19/18 16:25 08/19/18 16:25 Laboratory Results - last 24 hr 08/19/18 08/19/18 10:24 10:24 WBC 19.5 H RBC 3.45 L Hgb 9.1 L Hct 30 L MCV 85 MCH 26 L MCHC 31 RDW 22 H Plt Count 471 H MPV 8.3 Neut % (Auto) 90.5 Lymph % (Auto) 5.4 [place] % (Auto) 3.9 Eos % (Auto) 0.1 Baso % (Auto) 0.1 Absolute Neuts (auto) 17.7 H Absolute Lymphs (auto) 1.1 Absolute Monos (auto) 0.8 Absolute Eos (auto) 0.0 Absolute Basos (auto) 0.0 Absolute Nucleated RBC 0.0 Immature Gran % 12.0 H Neutrophils % 75.0 Band Neutrophils % 1.0 Lymphocytes % 9.0 Monocytes % 4.0 Metamyelocytes % 2.0 Myelocytes % 9.0 H Nucleated RBC % 0.1 Normal RBC Morphology Not Reportable Polychromasia 1+ Hypochromasia 2+ Anisocytosis 2+ Sodium 134 L Potassium 3.8 Chloride 102 Carbon Dioxide 27 Anion Gap 5 BUN 17 Creatinine 0.38 L Est GFR ( Amer) 269.2 Est GFR (Non-Af Amer) 222.5 BUN/Creatinine Ratio 44.7 H Glucose 164 H Calcium 8.6 Total Bilirubin 0.40 AST 20 ALT 21 Alkaline Phosphatase 346 H Total Protein 5.1 L Albumin 2.0 L Globulin 3.1 Albumin/Globulin Ratio 0.6 L Acetaminophen (Tylenol Tab*) 650 mg PO Q6H PRN PRN Reason: PAIN/FEVER Last Admin: 08/11/18 15:44 Dose: 650 mg Allopurinol (Zyloprim Tab*) 300 mg PO BEDTIME [facility] Last Admin: 08/18/18 20:48 Dose: 300 mg Enoxaparin Sodium (Lovenox(*)) 40 mg SUBCUT Q24H [facility] Last Admin: 08/19/18 17:22 Dose: 40 mg Furosemide (Lasix Iv*) 20 mg IV DAILY [facility] Last Admin: 08/19/18 09:55 Dose: 20 mg Heparin Sodium (Porcine) (Heparin Flush Port (Ivad)) 5 ml FLUSH DAILY [facility]; Protocol Last Admin: 08/19/18 09:57 Dose: 5 ml Ceftriaxone Sodium 1 gm/ (Sodium Chloride) 50 mls @ 200 mls/hr IVPB Q24H [facility] Last Admin: 08/19/18 15:32 Dose: 200 mls/hr Metronidazole (Flagyl Tab*) 500 mg PO BID [facility] Multi-Ingredient Mouthwash/Gargle (Magic Mouth Was-Femi/Maal/Lido*) 5 ml SWISH SPIT QID PRN PRN Reason: mouth sores Nystatin (Nystatin Suspension*) 500,000 units PO QID [facility] Stop: 08/24/18 09:39 Last Admin: 08/19/18 17:22 Dose: 500,000 units Potassium Chloride (Klor Con Er Tab*) 20 meq PO BID [facility] Last Admin: 08/19/18 09:57 Dose: 20 meq Prednisone (Deltasone Tab*) 20 mg PO DAILY [facility] Last Admin: 08/19/18 09:57 Dose: 20 mg Prochlorperazine (Compazine Tab*) 10 mg PO Q8H PRN PRN Reason: NAUSEA Exam: Gen: Ill, cachectic and fatigued appearing 77 yo male in NAD, accompanied by his HEENT: MMM, few white exudates c/w thrush CV: RRR, no m/r/g Resp: few rhonchi at lung bases, R>L Abd: soft, nonTTP Ext: trace edema at ankles bilaterally] Assessment: [This is a 77 yo male with diagnosis of limited stage pancreatic CA admitted initially with generalized malaise, but found to be bacteremic. Initial blood cultures grew Klebsiella, source eventually found to be a liver abscess, cx from aspiration also grew Klebsiella. Slow to improve on IV abx. He had a notable rise in WBC and underwent further aspiration of the liver abscess with IR yesterday. Plan: [1. Klebsiella bacteremia secondary to liver abscess - ID consultation appreciated - recommendation for 4 weeks of IV abx, switched to daily ceftriaxone 08/16 - today day 12/19 (thru Sep 07) - now s/p additional aspiration of liver abscess, no drain in place - WBC remains elevated today, but afebrile, cont to monitor - will likely defer repeat imaging at that time unless patient is interested in resuming chemotherapy 2. Hypoxia - likely due to fluid overload and atelectasis, improving with diuresis - cont lasix 20 mg q am - cont to down titrate supp O2 3. Thrush - cont nystatin swish/spit 4. Malnutrition, severe protein deficiency - cachetic on exam, temporal wasting , albumin 1.9 - oral intake improving 5. Pancreatic CA - no evidence of progressive dz, but has tolerated tx very poorly - plan to transition to Hospice following treatment of acute infection 6. DNR Dispo: pt's is very motivated to bring him home. Plan for dc Wednesday with VNS services until the completion of abx followed by sign on with home hospice] Assessment: [] Plan: []
[2018-08-19] MEDS: Allopurinol TAB* 300 MG PO SCH (22:10)
[2018-08-19] MEDS: metroNIDAZOLE TAB* 250 MG PO SCH (22:10)
[2018-08-19] MEDS ORDERED: LORazepam TAB(*) 1 MG PO PRN (23:51)
[2018-08-20 06:54] LABS: Hematocrit 29 % (42-52); Hemoglobin 9.2 g/dL (14.0-18.0); Mean Corpuscular HGB Conc 32 g/dL (31-36); Mean Corpuscular Hemoglobin 27 pg (27-31); Mean Corpuscular Volume 86 fL (80-94); Mean Platelet Volume 8.4 fL (7.4-10.4); Platelet Count 416 10^3/uL (150-450); Red Blood Count 3.37 10^6 /uL (4.18-5.48); Red Cell Distribution Width 23 % (10-15); White Blood Count 19.2 10^3/uL (3.5-10.8)
[2018-08-20 06:58] LABS: Anion Gap 4 mmol/L (2-11); Blood Urea Nitrogen 15 mg/dL (6-24); CO2 Carbon Dioxide 28 mmol/L (22-32); Calcium 8.7 mg/dL (8.6-10.3); Chloride 100 mmol/L (101-111); EGFR African American 352.7 (>60); EGFR Non-African American 291.5 (>60); Glucose 122 mg/dL (70-100); Potassium 4.3 mmol/L (3.5-5.0); Sodium 132 mmol/L (135-145)
[2018-08-20 07:31] LABS: ABS Basophils 0.1 10^3/ul (0-0.2); ABS Eosinophils 0.1 10^3/ul (0-0.6); ABS Lymphocytes 0.8 10^3/ul (1.0-4.8); ABS Monocytes 0.8 10^3/ul (0-0.8); ABS Neutrophils 17.4 10^3/ul (1.5-7.7); Eosinophil % 0.3 %; Lymphocyte % 4.4 %
[2018-08-20] MEDS: Potassium Chlor TAB* 20 MEQ TAB.ER PO SCH ×2 (09:11→22:25)
[2018-08-20] MEDS: predniSONE TAB* 20 MG PO SCH (09:11)
[2018-08-20] MEDS: metroNIDAZOLE TAB* 250 MG PO SCH ×2 (09:11→22:13)
[2018-08-20] MEDS: Furosemide IV* 10 MG/ML VIAL (40 MG) IV SCH (09:12)
[2018-08-20] MEDS: Nystatin SUSPENSION* 100000 UNITS/ML 5 ML UDC PO SCH ×4 (09:13→22:25)
--- NOTE | 2018-08-20 12:44 | PN ---
Progress Note - Progress Note Date of Service: 08/20/18 SOAP: Subjective: [No changes. He requested O2 be removed this am, after ~10min O2 sat dropped to 87%. He was asx at the time.] Objective: [ Vital Signs: Temp Pulse Resp BP Pulse Ox 97.6 F 92 20 139/80 96 08/20/18 07:30 08/20/18 07:30 08/20/18 08:13 08/20/18 07:30 08/20/18 07:30 Acetaminophen (Tylenol Tab*) 650 mg PO Q6H PRN PRN Reason: PAIN/FEVER Last Admin: 08/11/18 15:44 Dose: 650 mg Allopurinol (Zyloprim Tab*) 300 mg PO BEDTIME [facility] Last Admin: 08/19/18 22:10 Dose: 300 mg Enoxaparin Sodium (Lovenox(*)) 40 mg SUBCUT Q24H [facility] Last Admin: 08/19/18 17:22 Dose: 40 mg Furosemide (Lasix Iv*) 20 mg IV DAILY [facility] Last Admin: 08/20/18 09:12 Dose: 20 mg Heparin Sodium (Porcine) (Heparin Flush Port (Ivad)) 5 ml FLUSH DAILY [facility]; Protocol Last Admin: 08/20/18 09:13 Dose: 5 ml Ceftriaxone Sodium 1 gm/ (Sodium Chloride) 50 mls @ 200 mls/hr IVPB Q24H [facility] Last Admin: 08/19/18 15:32 Dose: 200 mls/hr Lorazepam (Ativan Tab(*)) 1 mg PO ONCE PRN PRN Reason: INSOMNIA Stop: 08/20/18 23:50 Last Admin: 08/20/18 02:23 Dose: 1 mg Metronidazole (Flagyl Tab*) 500 mg PO BID [facility] Last Admin: 08/20/18 09:11 Dose: 500 mg Multi-Ingredient Mouthwash/Gargle (Magic Mouth Was-Femi/Maal/Lido*) 5 ml SWISH SPIT QID PRN PRN Reason: mouth sores Nystatin (Nystatin Suspension*) 500,000 units PO QID [facility] Stop: 08/24/18 09:39 Last Admin: 08/20/18 09:13 Dose: 500,000 units Potassium Chloride (Klor Con Er Tab*) 20 meq PO BID [facility] Last Admin: 08/20/18 09:11 Dose: 20 meq Prednisone (Deltasone Tab*) 20 mg PO DAILY [facility] Last Admin: 08/20/18 09:11 Dose: 20 mg Prochlorperazine (Compazine Tab*) 10 mg PO Q8H PRN PRN Reason: NAUSEA Laboratory Results - last 24 hr 08/20/18 08/20/18 06:15 06:15 WBC 19.2 H RBC 3.37 L Hgb 9.2 L Hct 29 L MCV 86 MCH 27 MCHC 32 RDW 23 H Plt Count 416 MPV 8.4 Neut % (Auto) 90.9 Lymph % (Auto) 4.4 [place] % (Auto) 4.1 Eos % (Auto) 0.3 Baso % (Auto) 0.3 Absolute Neuts (auto) 17.4 H Absolute Lymphs (auto) 0.8 L Absolute Monos (auto) 0.8 Absolute Eos (auto) 0.1 Absolute Basos (auto) 0.1 Absolute Nucleated RBC 0.0 Nucleated RBC % 0.0 Sodium 132 L Potassium 4.3 Chloride 100 L Carbon Dioxide 28 Anion Gap 4 BUN 15 Creatinine < 0.30 L Est GFR ( Amer) 352.7 Est GFR (Non-Af Amer) 291.5 BUN/Creatinine Ratio 50.0 H Glucose 122 H Calcium 8.7 Exam: Gen: Ill, cachectic and fatigued appearing 77 yo male in NAD, accompanied by his HEENT: MMM, few white exudates c/w thrush CV: RRR, no m/r/g Resp: few rhonchi at lung bases, R>L Abd: soft, nonTTP Ext: trace edema at ankles bilaterally] Assessment: [This is a 77 yo male with diagnosis of limited stage pancreatic CA admitted initially with generalized malaise, but found to be bacteremic. Initial blood cultures grew Klebsiella, source eventually found to be a liver abscess, cx from aspiration also grew Klebsiella. Slow to improve on IV abx. He had a notable rise in WBC and underwent further aspiration of the liver abscess with IR 08/18. Plan: [1. Klebsiella bacteremia secondary to liver abscess - ID consultation appreciated - recommendation for 4 weeks of IV abx, switched to daily ceftriaxone 08/16 - today day 01/19 (thru Sep 07) - now s/p additional aspiration of liver abscess, no drain in place - WBC remains elevated today, but afebrile, cont to monitor - will likely defer repeat imaging at that time unless patient is interested in resuming chemotherapy 2. Hypoxia - likely due to fluid overload and atelectasis, improving with diuresis - cont lasix 20 mg q am - will likely need additional supp O2 at home 3. Thrush - cont nystatin swish/spit 4. Malnutrition, severe protein deficiency - cachetic on exam, temporal wasting , albumin 1.9 - oral intake improving 5. Pancreatic CA - no evidence of progressive dz, but has tolerated tx very poorly - plan to transition to Hospice following treatment of acute infection 6. DNR Dispo: pt's is very motivated to bring him home. Plan for dc Wednesday with VNS services until the completion of abx followed by sign on with home hospice]]
[2018-08-20] MEDS: cefTRIAXone(*) 1 GM in NS 0.9% 50 ML* 50 ML IVPB SCH (16:00)
[2018-08-20] MEDS: Enoxaparin(*) 40 MG/0.4 ML SYR SUBCUT SCH (17:39)
[2018-08-20] MEDS: Allopurinol TAB* 300 MG PO SCH (22:20)
[2018-08-21 06:11] LABS: Hematocrit 29 % (42-52); Hemoglobin 9.1 g/dL (14.0-18.0); Mean Corpuscular HGB Conc 31 g/dL (31-36); Mean Corpuscular Hemoglobin 27 pg (27-31); Mean Corpuscular Volume 86 fL (80-94); Mean Platelet Volume 8.2 fL (7.4-10.4); Platelet Count 419 10^3/uL (150-450); Red Blood Count 3.37 10^6 /uL (4.18-5.48); Red Cell Distribution Width 23 % (10-15); White Blood Count 19.6 10^3/uL (3.5-10.8)
[2018-08-21 06:17] LABS: BUN/Creatinine Ratio 45.2 (8-20); Calcium 8.5 mg/dL (8.6-10.3); EGFR African American 339.6 (>60); EGFR Non-African American 280.7 (>60); Potassium 4.3 mmol/L (3.5-5.0)
[2018-08-21 06:47] LABS: ABS Basophils 0.1 10^3/ul (0-0.2); ABS Lymphocytes 0.8 10^3/ul (1.0-4.8); ABS Neutrophils 17.7 10^3/ul (1.5-7.7); Eosinophil % 0.2 %; Lymphocyte % 4.2 %; Polychromasia 1+
[2018-08-21 06:48] LABS: Microcytosis 1+
[2018-08-21] MEDS: metroNIDAZOLE TAB* 250 MG PO SCH ×2 (09:13→20:09)
[2018-08-21] MEDS: Nystatin SUSPENSION* 100000 UNITS/ML 5 ML UDC PO SCH ×4 (09:13→20:09)
[2018-08-21] MEDS: Potassium Chlor TAB* 20 MEQ TAB.ER PO SCH ×2 (09:13→20:09)
[2018-08-21] MEDS: Furosemide IV* 10 MG/ML VIAL (40 MG) IV SCH (09:13)
[2018-08-21] MEDS: predniSONE TAB* 20 MG PO SCH (09:14)
--- NOTE | 2018-08-21 11:31 | PN ---
Progress Note - Progress Note Date of Service: 08/21/18 SOAP: Subjective: [No change. Remains quite fatigued. Eating ok.] Objective: [ Vital Signs: Temp Pulse Resp BP Pulse Ox 97.6 F 86 24 146/84 97 08/21/18 08:00 08/21/18 08:00 08/21/18 08:00 08/21/18 08:00 08/21/18 08:00 Acetaminophen (Tylenol Tab*) 650 mg PO Q6H PRN PRN Reason: PAIN/FEVER Last Admin: 08/11/18 15:44 Dose: 650 mg Allopurinol (Zyloprim Tab*) 300 mg PO BEDTIME [facility] Last Admin: 08/20/18 22:20 Dose: 300 mg Enoxaparin Sodium (Lovenox(*)) 40 mg SUBCUT Q24H [facility] Last Admin: 08/20/18 17:39 Dose: 40 mg Furosemide (Lasix Iv*) 20 mg IV DAILY [facility] Last Admin: 08/21/18 09:13 Dose: 20 mg Heparin Sodium (Porcine) (Heparin Flush Port (Ivad)) 5 ml FLUSH DAILY [facility]; Protocol Last Admin: 08/21/18 09:14 Dose: 5 ml Ceftriaxone Sodium 1 gm/ (Sodium Chloride) 50 mls @ 200 mls/hr IVPB Q24H [facility] Last Admin: 08/20/18 16:00 Dose: 200 mls/hr Metronidazole (Flagyl Tab*) 500 mg PO BID [facility] Last Admin: 08/21/18 09:13 Dose: 500 mg Multi-Ingredient Mouthwash/Gargle (Magic Mouth Was-Femi/Maal/Lido*) 5 ml SWISH SPIT QID PRN PRN Reason: mouth sores Nystatin (Nystatin Suspension*) 500,000 units PO QID [facility] Stop: 08/24/18 09:39 Last Admin: 08/21/18 09:13 Dose: 500,000 units Potassium Chloride (Klor Con Er Tab*) 20 meq PO BID [facility] Last Admin: 08/21/18 09:13 Dose: 20 meq Prednisone (Deltasone Tab*) 20 mg PO DAILY [facility] Last Admin: 08/21/18 09:14 Dose: 20 mg Prochlorperazine (Compazine Tab*) 10 mg PO Q8H PRN PRN Reason: NAUSEA Laboratory Results - last 24 hr 06/30/19 06/30/19 05:50 05:50 WBC 19.6 H RBC 3.37 L Hgb 9.1 L Hct 29 L MCV 86 MCH 27 MCHC 31 RDW 23 H Plt Count 419 MPV 8.2 Neut % (Auto) 90.2 Lymph % (Auto) 4.2 [place] % (Auto) 4.9 Eos % (Auto) 0.2 Baso % (Auto) 0.5 Absolute Neuts (auto) 17.7 H Absolute Lymphs (auto) 0.8 L Absolute Monos (auto) 1.0 H Absolute Eos (auto) 0.0 Absolute Basos (auto) 0.1 Absolute Nucleated RBC 0.0 Immature Gran % 6.0 Neutrophils % 85.0 Band Neutrophils % 1.0 Lymphocytes % 5.0 Monocytes % 3.0 Eosinophils % 1.0 Metamyelocytes % 3.0 H Myelocytes % 1.0 Promyelocytes % 1.0 Nucleated RBC % 0.0 Normal RBC Morphology Not Reportable Polychromasia 1+ Microcytosis 1+ Macrocytosis 2+ Sodium 131 L Potassium 4.3 Chloride 97 L Carbon Dioxide 29 Anion Gap 5 BUN 14 Creatinine 0.31 L Est GFR ( Amer) 339.6 Est GFR (Non-Af Amer) 280.7 BUN/Creatinine Ratio 45.2 H Glucose 135 H Calcium 8.5 L Exam: Gen: Ill, cachectic and fatigued appearing 77 yo male in NAD, accompanied by his HEENT: MMM CV: RRR, no m/r/g Resp: lungs CTA, no w/c/r Abd: soft, nonTTP, small amount of ascites Ext: trace edema at ankles bilaterally] Assessment: [This is a 77 yo male with diagnosis of limited stage pancreatic CA admitted initially with generalized malaise, but found to be bacteremic. Initial blood cultures grew Klebsiella, source eventually found to be a liver abscess, cx from aspiration also grew Klebsiella. Slow to improve on IV abx. He had a notable rise in WBC and underwent further aspiration of the liver abscess with IR 08/18. Plan: [1. Klebsiella bacteremia secondary to liver abscess - ID consultation appreciated - recommendation for 4 weeks of IV abx, switched to daily ceftriaxone 08/16 - today day 02/18 (thru Sep 07) - now s/p additional aspiration of liver abscess, no drain in place - WBC remains elevated today, but afebrile, cont to monitor - may benefit from a drain placed in the abscess, or the infection may be multifocal accounting for the persistent leukocytosis but patient does not wish to have any additional interventions apart from continuing abx - will likely defer repeat imaging at that time unless patient is interested in resuming chemotherapy 2. Hypoxia - likely due to fluid overload and atelectasis, improving with diuresis - cont lasix 20 mg q am - stable on 2L via NC, but desaturates on RA - will need additional supp O2 at home 3. Thrush - cont nystatin swish/spit 4. Malnutrition, severe protein deficiency - cachetic on exam, temporal wasting , albumin 1.9 - oral intake improved 5. Pancreatic CA - no evidence of progressive dz, but has tolerated tx very poorly - plan to transition to Hospice following treatment of acute infection 6. DNR Dispo: pt's is very motivated to bring him home. Plan for dc Wednesday with VNS services until the completion of abx followed by sign on with home hospice. Discussed with pts today what the course of action would be if he deteriorates while still receiving abx. She does not want him to be rehospitalized, and plan would be to stop abx and transition to Hospice at that time]
[2018-08-21] MEDS: cefTRIAXone(*) 1 GM in NS 0.9% 50 ML* 50 ML IVPB SCH (15:43)
[2018-08-21] MEDS: Enoxaparin(*) 40 MG/0.4 ML SYR SUBCUT SCH (17:22)
[2018-08-21] MEDS: Allopurinol TAB* 300 MG PO SCH (20:09)
[2018-08-21] MEDS: Acetaminophen TAB* 325 MG PO PRN (22:08)
[2018-08-22] MEDS ORDERED: traMADol TAB* 50 MG PO ONE (01:20)
[2018-08-22] MEDS: Furosemide IV* 10 MG/ML VIAL (40 MG) IV SCH (09:45)
[2018-08-22] MEDS: predniSONE TAB* 20 MG PO SCH (09:45)
[2018-08-22] MEDS: Potassium Chlor TAB* 20 MEQ TAB.ER PO SCH (09:45)
[2018-08-22] MEDS: Nystatin SUSPENSION* 100000 UNITS/ML 5 ML UDC PO SCH ×3 (09:45→19:23)
[2018-08-22] MEDS: metroNIDAZOLE TAB* 250 MG PO SCH (09:45)
[2018-08-22] MEDS: cefTRIAXone(*) 1 GM in NS 0.9% 50 ML* 50 ML IVPB SCH (14:50)
[2018-08-22] MEDS: Enoxaparin(*) 40 MG/0.4 ML SYR SUBCUT SCH (19:23)
[2018-08-22 19:34] VITALS: BP 133/91
--- NOTE | 2018-08-23 14:01 | DS ---
CC: Dr. Kingsley; Dr. Blandon * DISCHARGE SUMMARY: DATE OF ADMISSION: 08/09/18 DATE OF DISCHARGE: 08/22/18 PRIMARY CARE PROVIDER: Dr. Kingsley. CONSULTING INFECTIOUS DISEASE SPECIALIST: Dr. Doyle. CONSULTING PALLIATIVE PHYSICIAN: Dr. Pittman. PRIMARY ONCOLOGIST: Dr. Blandon ATTENDING PROVIDER: Dr. Rocha.* (DICTATED BY MILADYS SCHAFER) DISCHARGING PROVIDER: MILADYS Schafer. PRIMARY DISCHARGE DIAGNOSES: 1. Klebsiella bacteremia secondary to liver abscess. 2. Hypoxia secondary to fluid overload, improved with diuresis, and discharged without supplemental oxygen. 3. Thrush. 4. Severe protein-calorie malnutrition. 5. Pancreatic cancer - No plans for further treatment and will transition to hospice services, as discussed below. DISCHARGE MEDICATIONS: 1. Allopurinol 300 mg p.o. at bedtime. 2. Vitamin D 2000 units p.o. daily. 3. Dorzolamide/timolol ophthalmic drops, 1 drop to both eyes twice daily. 4. Xalatan drops, 1 drop to both eyes at bedtime. 5. Magic mouthwash with nystatin 10 mL, swish and spit 4 times daily. 6. Morphine sulfate 15 mg p.o. q.2 hours as needed for pain. 7. Compazine 10 mg p.o. q.8 hours as needed for nausea and vomiting. 8. Spironolactone 50 mg p.o. at bedtime. 9. Ceftriaxone 1 g IV daily through 09/07/18 for a total of 28 days of therapy. HOSPITAL IMAGIN. Chest x-ray, 08/09/18, demonstrates hyperinflation, no active cardiopulmonary disease. 2. CT brain, 08/09/18, shows no CT evidence for traumatic brain injury or other acute intracranial process. 3. CT abdomen and pelvis, 08/09/18, demonstrates interval progression of hepatic metastatic disease and small volume ascites, primarily in the pelvis, with interval decrease. Negative for obstructive uropathy. 4. Liver ultrasound, 08/10/18, shows identification of lesion on the left lobe of the liver demonstrating partially echogenic portion and an otherwise benign cystic- appearing lesion, which may yield diagnosable material. 5. Chest x-ray, 08/13/18, shows radiographic appearance and significant interval change compared to recent exam, favors bronchopneumonia or potentially ARDS. 6. Chest x-ray, 08/18/18, shows interstitial and alveolar consolidation, appears to be improved when compared to 08/13/18. HOSPITAL COURSE: This is a 78-year-old gentleman with limited stage pancreatic cancer who has received treatment under the guidance of Dr. Blandon. The patient received 3 cycles of gemcitabine and Abraxane with serologic response to treatment by CA19-9. 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 The patient had declining performance status and eventually presented to the emergency department with complaints of severe lethargy and fatigue. His initial evaluation in the emergency department showed no focal abnormalities. He was febrile, however, with a temperature of 100.3 degrees Fahrenheit, otherwise no vital sign changes and his labs were rather unremarkable. His initial imaging was read as showing progressive hepatic metastases. 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 There was, however, clear interval change between what appeared to be cystic-filled liver lesions. Blood cultures subsequently grew Klebsiella pneumoniae and the patient underwent biopsy of liver lesion, which returned purulent material and eventually grew Klebsiella pneumoniae as well. The patient initially was treated with Zosyn and narrowed to ceftriaxone under the guidance of infectious diseases specialist, Dr. Cory Doyle. The patient remained afebrile throughout most of his hospitalization, but his hospital stay was complicated by development of acute hypoxia. He had significant pulmonary congestion appreciated on chest x-ray. He was subsequently diuresed with improvement in his respiratory status. The patient's appetite remained relatively good throughout his hospitalization, but he developed progressive weakness. He was unable to transfer and became a max 2 assist by the time he was discharged from the hospital. Due to his significant decline in performance status even prior to this hospitalization, the patient and his determined that they would not want to continue with any further therapy despite the fact that this hospitalization does not appear to be related to progressive pancreatic cancer, but rather an infectious etiology. In fact, a CA19- 9 was repeated during his hospital stay and showed further decline to 95 from 148 measured 2 weeks prior. They did, however, desire treatment for this infection and Dr. Doyle recommended 4 weeks of IV antibiotics. Despite the patient's increasing weakness, his was quite motivated to take him home and necessary equipment was arranged to allow her to do this. DISPOSITION AND FOLLOWUP PLANNING: The patient is being discharged to home in stable condition where he lives with his . He will receive a total of 4 weeks of IV antibiotics, which will include ceftriaxone 1 g daily through . At the completion of his ceftriaxone, he will be transitioned to home hospice. I spoke with the patient and his during this hospital stay in the event that he deteriorates while receiving IV antibiotics at home. He does not wish to be re- hospitalized and instead would like to transition to home hospice at that time. MILADYS SCHAFER [id number]/[facility] #: [id number] BAO
== END 2018-08-22 19:30 | disposition home health service (06) | DRG 871 ==
LOC: ED 09:28 → MED 16:16 → OBSVTOIN 08-10 11:00 → MED 08-15 01:35
PROVIDERS: ADMIT Internal Medicine Hematology & Oncology; ATTEND Internal Medicine Hematology & Oncology
PROC: 0F923ZX Drainage of Left Lobe Liver, Percutaneous Approach, Diagnostic (ICD-10-PCS; 2018-08-11)
PROC: 0F923ZX Drainage of Left Lobe Liver, Percutaneous Approach, Diagnostic (ICD-10-PCS; principal; 2018-08-18)
DX: A41.59 Other Gram-negative sepsis (principal); K75.0 Abscess of liver; E43 Unspecified severe protein-calorie malnutrition; C25.9 Malignant neoplasm of pancreas, unspecified; R18.8 Other ascites; C79.9 Secondary malignant neoplasm of unspecified site; J98.11 Atelectasis; B96.1 Klebsiella pneumoniae [K. pneumoniae] as the cause of diseases classified elsewhere; R09.02 Hypoxemia; E87.70 Fluid overload, unspecified; B37.9 Candidiasis, unspecified; E11.39 Type 2 diabetes mellitus with other diabetic ophthalmic complication; H42 Glaucoma in diseases classified elsewhere; I10 Essential (primary) hypertension; I34.0 Nonrheumatic mitral (valve) insufficiency; M19.90 Unspecified osteoarthritis, unspecified site; E86.0 Dehydration; K59.00 Constipation, unspecified; Z66 Do not resuscitate; K76.89 Other specified diseases of liver; D63.8 Anemia in other chronic diseases classified elsewhere; S40.811A Abrasion of right upper arm, initial encounter; X58.XXXA Exposure to other specified factors, initial encounter; S41.112A Laceration without foreign body of left upper arm, initial encounter; Z92.21 Personal history of antineoplastic chemotherapy; Z87.891 Personal history of nicotine dependence; Z88.1 Allergy status to other antibiotic agents; Z95.828 Presence of other vascular implants and grafts; Y92.9 Unspecified place or not applicable
CPT/HCPCS: 10005; 36415; 47000; 70450; 71045; 71046; 74177; 76705; 76942; 80048; 80053; 81003; 81015; 82272; 82550; 83605; 83735; 83880; 84134; 84484; 85025; 85610; 85652; 85730; 86140; 86301; 87040; 87070; 87077; 87086; 87102; 87116; 87150; 87186; 87205; 87206; 88172; 88173; 93005; 99219; 99232; 99233; 99239; 99285; A9270-GY; G0378; G8978-GP-CL; G8979-GP-CI; J0456; J0696; J1642; J1650; J1940; J2543; J2920; J3010; J7512; Q9967

== ENCOUNTER 2018-09-01 17:13 | Observation (INO) | payer MEDICARE, OTHER ==
--- NOTE | 2018-09-01 17:44 | ED ---
Shortness of Breath - HPI Summary HPI Summary: Patient is a 78 y old M presenting to the [facility] accompanied by with chief complaint of SOB with onset of about 2 days, 08/30/18. Patients reports that he has productive cough and no hx of fluid on lungs but has hx of edema in legs. Patient reports he is feeling ok when he breaths currently. Symptoms alleviated by oxygen mask. Symptoms aggravated by nothing. reports that he has a hospital bed at home, and he sleeps with 1 pillow under the head. Patient denies use of oxygen at home. Patient denies fever, chills, CP, hx of blood clots, dizziness, lightheadedness, COPD, emphysema of eyes, sore throat, abdominal pain, N/V, dysuria, hematuria, myalgia, or rash. Patients reports that patient is on a blood antibiotic prescribed by Dr. Blandon, oncology, but is unsure of the name. reports PCP is Dr. Kingsley. Patient reports that he is DNR but not DNI. - History of Current Complaint Chief Complaint: EDShortnessOfBreath Time Seen by Provider: 09/01/18 17:23 Hx Obtained From: Patient, Family/Market Research Analyst - Onset/Duration: Lasting Days - 2, Still Present Current Severity: Severe Dyspnea At: Rest Aggravating Factors: Nothing Alleviating Factors: Oxygen Associated Signs & Symptoms: Cough (Productive), Edema - BLE - Allergy/Home Medications Allergies/Adverse Reactions: Allergies Allergy/AdvReac Type Severity Reaction Status Date / Time bacitracin Allergy Unknown Verified 09/01/18 17:37 [From Neosporin Reaction ([id number])] Details neomycin Allergy Unknown Verified 09/01/18 17:37 [From Neosporin Reaction ([id number])] Details polymyxin B Allergy Unknown Verified 09/01/18 17:37 [From Neosporin Reaction ([id number])] Details PMH/Surg Hx/FS Hx/Imm Hx Endocrine/Hematology History: Reports: Hx Diabetes Cardiovascular History: Reports: Hx Hypertension Denies: Hx Pacemaker/ICD GI History: Reports: Other GI Disorders - PANCREATITIS, WAS IN HOSPITAL FEW WEEKS IN 04/2018,metastatic pancreatic CA History: Denies: Hx Renal Disease Sensory History: Reports: Hx Contacts or Glasses - GLASSES Denies: Hx Hearing Aid Opthamlomology History: Reports: Hx Contacts or Glasses - GLASSES Psychiatric History: Denies: Hx Panic Disorder - Cancer History Cancer Type, Location and Year: metastatic pancreatic CA on chemo - Surgical History Surgery Procedure, Year, and Place: 194 tonsillectomy,. 2012 left leg with plate C[facility]. power port R side chest. stent placed Hx Anesthesia Reactions: No Infectious Disease History: No Infectious Disease History: Denies: Traveled Outside the [place] in Last 30 Days - Family History Known Family History: Negative: Cardiac Disease - Social History Alcohol Use: None Hx Substance Use: Yes Substance Use Type: Reports: Prescribed Substance Use Comment - Amount & Last Used: morphine Hx Tobacco Use: Yes Smoking Status (MU): Former Smoker Type: Cigarettes Amount Used/How Often: 1PPD 30 YRS Have You Smoked in the Last Year: No Review of Systems Negative: Fever, Chills, Skin Diaphoresis Negative: Erythema Negative: Sore Throat Negative: Chest Pain Positive: Shortness Of Breath, Cough - Productive Negative: Abdominal Pain, Vomiting, Nausea Negative: dysuria, hematuria Positive: Edema - BLE. Negative: Myalgia Negative: Rash Neurological: Other - (-): dizziness, lightheadedness All Other Systems Reviewed And Are Negative: Yes Physical Exam - Summary Physical Exam Summary: Constitutional: Well-developed, Well-nourished, Alert. (-) Distressed Skin: Warm, Dry HENT: Normocephalic; Atraumatic Eyes: Conjunctiva normal Neck: Musculoskeletal ROM normal neck. (-) JVD, (-) Stridor, (-) Tracheal deviation Cardio: Rhythm regular, rate normal, Heart sounds normal; Intact distal pulses; The pedal pulses are 2+ and symmetric. Radial pulses are 2+ and symmetric. (-) Murmur Pulmonary/Chest wall: Tachypneic. Rales and rhonchi bilaterally. (-) Respiratory distress, (-) Wheezes Abd: Soft, (-) tenderness, (-) Distension, (-) Guarding, (-) Rebound Musculoskeletal: (-) Edema Lymph: (-) Cervical adenopathy Neuro: Alert, Oriented x3 Psych: Mood and affect Normal Triage Information Reviewed: Yes Vital Signs On Initial Exam: Initial Vitals Temp Pulse Resp BP Pulse Ox 97.2 F 97 24 168/108 100 09/01/18 17:20 09/01/18 17:20 09/01/18 17:20 09/01/18 17:20 09/01/18 17:20 Vital Signs Reviewed: Yes Diagnostics - Vital Signs Vital Signs Temp Pulse Resp BP Pulse Ox 09/01/18 17:20 97.2 F 97 24 168/108 100 - Laboratory Result Diagrams: 09/01/18 17:35 09/01/18 17:35 Lab Statement: Any lab studies that have been ordered have been reviewed, and results considered in the medical decision making process. - Radiology Chest X-Ray Radiology Interpretation Completed By: Radiologist Summary of Radiographic Findings: Per radiologist,. LEFT UPPER LOBE AND RIGHT BASE ATELECTASIS. ED physician has reviewed this report. - EKG 1731 Cardiac Rate: NL - 92 BMP EKG Rhythm: Sinus Rhythm Summary of EKG Findings: 92 BPM. Sinus Rhythm. No STEMI. Re-Evaluation - Re-Evaluation First Eval Re-Evaluation Time: 19:00 Comment: I discussed admission with the patient. Course/Dx - Course Course Of Treatment: Patient is a 78 y old M presenting to the [facility] accompanied by with chief complaint of SOB with onset of about 2 days, . Patients reports that he has productive cough and no hx of fluid on lungs but has hx of edema in legs. reports that he has a hospital bed at home, and he sleeps with 1 pillow under the head. Patient denies use of oxygen at home. Patient denies fever, chills, CP, hx of blood clots, dizziness, lightheadedness, COPD, emphysema of eyes, sore throat, abdominal pain, N/V, dysuria, hematuria, myalgia, or rash. Patients reports that patient is on a blood antibiotic prescribed by Dr. Blandon, oncology, but is unsure of the name. Physical exam reveals tachypnea, rales and rhonchi bilaterally. Blood work reveals RBCs of 3.39, hgb of 9.7, hct of 30, RDW of 23, abs neuts of 88, abs lymphs of 0.8, sodium of 131, potassium of 3.3, chloride of 97, creatinine of 0.41, BUN/creatinine ratio of 24.4, glucose of 155, POC glucose of 161, calcium of 8.4, alkaline phosphatase of 467, BNR of 349, total protein of 6.3, albumin of 2.4, and albumin/globulin ratio of 0.6. In the ED course, the patient was administered NS, Rocephin, Lasix, and Zithromax. EKG reveals NSR at 92 BPM, no STEMI. CXR reveals left upper lobe and right base atelectasis. At 1900, I discussed the patient's case with Dr. Sanchez; he accepts patient for admission. - Diagnoses Provider Diagnoses: Community acquired pneumonia - Physician Notifications Discussed Care of Patient With: Hammad Sanchez - hospitalist Time Discussed With Above Provider: 19:00 Instructed by Provider To: Admit As Inpatient - Dr. Sanchez accepts the patient for admission after discussing the patient's case with her. Discharge - Sign-Out/Discharge Documenting (check all that apply): Patient Departure - Patient is accepted for admission by Dr. Lin. Patient Received Moderate/Deep Sedation with Procedure: No - Discharge Plan Condition: Stable Disposition: ADMITTED TO [facility] - Billing Disposition and Condition Condition: STABLE Disposition: Admitted to [facility] - Attestation Statements Document Initiated by Scribe: Yes Documenting Scribe: Sanjana Ambrosio Provider For Whom Scribe is Documenting (Include Credential): Cosmo Lamb MD Scribe Attestation: Sanjana Krueger, scribed for Cosmo Lamb MD on 09/01/18 at 3106. Status of Scribe Document: Ready
[2018-09-01 17:46] LABS: ABS Basophils 0.1 10^3/ul (0-0.2); ABS Eosinophils 0.1 10^3/ul (0-0.6); ABS Lymphocytes 0.8 10^3/ul (1.0-4.8); ABS Monocytes 0.6 10^3/ul (0-0.8); ABS Neutrophils 8.8 10^3/ul (1.5-7.7); Eosinophil % 0.7 %; Hematocrit 30 % (42-52); Hemoglobin 9.7 g/dL (14.0-18.0); Lymphocyte % 7.4 %; Mean Corpuscular HGB Conc 33 g/dL (31-36); Mean Corpuscular Hemoglobin 29 pg (27-31); Mean Corpuscular Volume 87 fL (80-94); Mean Platelet Volume 7.4 fL (7.4-10.4); Platelet Count 311 10^3/uL (150-450); Red Blood Count 3.39 10^6 /uL (4.18-5.48); Red Cell Distribution Width 23 % (10-15); White Blood Count 10.3 10^3/uL (3.5-10.8)
[2018-09-01 18:01] LABS: Albumin 2.4 g/dL (3.2-5.2); Albumin/Globulin Ratio 0.6 (1-3); BUN/Creatinine Ratio 24.4 (8-20); Calcium 8.4 mg/dL (8.6-10.3); EGFR Non-African American 203.3 (>60); Globulin 3.9 g/dL (2-4); Potassium 3.3 mmol/L (3.5-5.0); Total Bilirubin 0.4 mg/dL (0.2-1.0); Total Protein 6.3 g/dL (6.4-8.9)
[2018-09-01 18:02] LABS: Troponin I 0.03 ng/mL (<0.04)
[2018-09-01] MEDS ORDERED: cefTRIAXone(*) 1 GM in NS 0.9% 50 ML* 50 ML IVPB ONE (18:14)
[2018-09-01] MEDS ORDERED: Azithromycin 500 mg/250 ml NS 500 MG/250 ML BAG IVPB ONE (18:14)
[2018-09-01] MEDS ORDERED: Morphine ORAL.SOLN 10 mg* 2 MG/ML UDC 5 ml PO PRN (19:23)
[2018-09-01] MEDS ORDERED: Prochlorperazine TAB* 10 MG PO PRN (19:23)
[2018-09-01] MEDS ORDERED: NS 0.9% w/ 40 Meq KCL 1000 ML* 1,000 ML IV SCH (20:00)
[2018-09-01] MEDS ORDERED: Enoxaparin(*) 40 MG/0.4 ML SYR SUBCUT SCH (20:00)
[2018-09-01] MEDS ORDERED: Furosemide IV* 10 MG/ML 2 ML VIAL (20 MG) IV SLOW PU ONE (20:11)
[2018-09-01] MEDS ORDERED: Allopurinol TAB* 300 MG PO SCH (21:00)
[2018-09-01] MEDS ORDERED: Spironolactone TAB* 25 MG PO SCH (21:00)
[2018-09-01] MEDS ORDERED: Latanoprost 0.005%* 2.5 ml BTL BOTH EYES SCH (21:00)
[2018-09-01] MEDS: Dorzolamide/Timolol OPTH (NF) 10 ML BOT BOTH EYES SCH (21:17)
[2018-09-01] MEDS: Nystatin SUSPENSION* 100000 UNITS/ML 5 ML UDC PO SCH (21:18)
[2018-09-01] MEDS: KCL 20 MEQ/100 ML IVPREMIX* 20 MEQ/100 ML BAG IV SCH (21:44)
--- NOTE | 2018-09-01 23:28 | HP ---
CC: Dr. Blandon; Dr. Kingsley * HISTORY AND PHYSICAL: DATE OF ADMISSION: 09/01/18 CHIEF COMPLAINT: Shortness of breath. HISTORY OF PRESENT ILLNESS: Mr. Mosley is a 78-year-old man with pancreatic cancer, who reports 3 days of progressive dyspnea, they brought him to the emergency department this evening. He denies chest pain, denies cough, denies history of lung disease. Yesterday, when the breathing worsened, his called the visiting nurse and they did come to the house while the patient was being transported by ambulance. Apparently, when he presented to the ambulance , his oxygen saturation was 85% on room air. He does not have home O2. The patient has pancreatic cancer that was diagnosed in March of this year after he presented with painless jaundice in February. He has been treated with gemfibrozil and Abraxane. However, last month he was admitted from 08/09/18 through 08/22/18 and had liver abscess diagnosed by ultrasound biopsy on . The culture from this grew Klebsiella pneumoniae and the biopsy which revealed what appeared to be an abscess. The patient was given intravenous ceftriaxone and sent home with daily infusions of ceftriaxone through his port. During that hospital stay, he did have episode of volume overload and he needed to be diuresed. According to discharge planning on 08/22/18, the plan was to try to treat the liver abscesses with ceftriaxone and then transition to home hospice without any further treatment of his pancreatic cancer. PAST MEDICAL HISTORY: Pancreatic cancer as above, vitamin D deficiency, type 2 diabetes, hypertension, glaucoma, history of pancreatitis, mitral valve insufficiency, osteoarthritis. PAST SURGICAL HISTORY: Biliary stent placement, left leg ORIF, and tonsillectomy. MEDICATIONS ON ADMISSION: 1. Allopurinol 300 mg p.o. q.p.m. 2. Cholecalciferol 2000 units p.o. q. day. 3. Ergocalciferol 800 units p.o. q.a.m. 4. Cosopt 1 drop both eyes daily. 5. Xalatan 0.005% 1 drop both eyes daily. 6. Magic mouthwash 5 mL, swish and spit daily. 7. Morphine sulfate 15 mg p.o. q.2 hours p.r.n. pain. 8. Prochlorperazine 10 mg p.o. q.8 hours p.r.n. nausea. 9. Spironolactone 50 mg p.o. q.h.s. 10. Ceftriaxone 1 g IV q. day through 09/07/18. 11. Nystatin suspension orally 4 times a day for thrush. ALLERGIES: NEOSPORIN. FAMILY HISTORY: Notable for sister with Crohn's disease, father with prostate cancer. SOCIAL HISTORY: He worked as a garbage truck driver stationary equipment mechanic. He is . He has 1 daughter who he has not seen in 10 years. He has 2 step children. He quit tobacco in 1994. No alcohol or drug use. REVIEW OF SYSTEMS: The patient has had significant weight loss in the last 6 months. He denies anorexia today. The patient denies any chest pain, or palpitations. The patient does admit to a cough, but denies hemoptysis. The remainder of 14-point review of systems is negative other than mentioned in the HPI. PHYSICAL EXAMINATION GENERAL: He is alert, in no acute distress. VITAL SIGNS: Temperature is 36.2, pulse 95, respirations 24, blood pressure 168 /108, and oxygen saturation was 100% on 15 L and was 85% on room air. HEENT: Head is normocephalic, atraumatic. Sclerae is anicteric. Pupils are equal, round, and reactive to light and accommodation. Oropharynx is edentulous. No lesions. NECK: No JVD, no carotid bruit, no thyromegaly. LUNGS: Rhonchi at the bases bilaterally. Chest wall notable for right subclavian port. HEART: Regular rate and rhythm without murmurs or gallops. ABDOMEN: Soft, mildly distended. Positive bowel sounds. There is fluid wave present, no masses. EXTREMITIES: No peripheral edema. Dorsalis pedis pulses are 1+ bilaterally. SKIN: No rashes. NEUROLOGIC: Cranial nerves II through XII were intact. Motor strength is 5/5 throughout. Deep tendon reflexes are symmetric. LABORATORY DATA: Sodium 131, potassium 3.3, chloride 97, bicarb 28, BUN 10, creatinine 0.41, glucose 155, calcium 8.4. Albumin 2.4. AST 19, ALT 23, bilirubin 0.4. Lactic acid 1.8. Troponin 0.03. BNP 347. White count 10.3, hemoglobin 9.7, hematocrit 30%, platelets of 311. EKG showed normal sinus rhythm with PACs and Q-wave flattening at V5 through V6. Chest x-ray showed some linear markings, left greater than right. No focal infiltrates. No change from 08/10/18. ASSESSMENT AND PLAN: A 78-year-old male presenting with hypoxia and dyspnea. Differential would include congestive heart failure and volume overload as well as pneumonia, that did not respond to current ceftriaxone treatment or possibly lung metastasis could also be attributing to hypoxia. The patient received diuresis in the emergency department to address possible volume overload. We will check an echocardiogram to assess whether he has systolic heart failure. For the possible pneumonia, he will continue on ceftriaxone and will be given azithromycin as well intravenously. For the pancreatic cancer, the patient is still contemplating treatment if he gets better. In discussing code status, he did not agree that he was DNR, wants to be full code. He would want to have immediate brief cardiac resuscitation and pulmonary resuscitation if necessary but would not want prolonged intubation. Dr. Blandon is going to take over the case tomorrow and address the patient's expectation of further cancer treatment. For the hypokalemia, we will replete this intravenously and recheck electrolytes in the morning. For diabetes, he appears to be on no oral medications. We will check fingerstick and start sliding scale insulin if necessary. [id number]/[facility] #: [id number] [facility] HOSPITALSissy
[2018-09-02] MEDS: KCL 20 MEQ/100 ML IVPREMIX* 20 MEQ/100 ML BAG IV SCH (00:01)
[2018-09-02 07:58] LABS: ABS Basophils 0.1 10^3/ul (0-0.2); ABS Eosinophils 0.2 10^3/ul (0-0.6); ABS Lymphocytes 0.8 10^3/ul (1.0-4.8); ABS Monocytes 0.6 10^3/ul (0-0.8); ABS Neutrophils 6.4 10^3/ul (1.5-7.7); Eosinophil % 1.9 %; Hematocrit 26 % (42-52); Hemoglobin 8.5 g/dL (14.0-18.0); Mean Corpuscular HGB Conc 33 g/dL (31-36); Mean Corpuscular Hemoglobin 29 pg (27-31); Mean Corpuscular Volume 87 fL (80-94); Mean Platelet Volume 7.2 fL (7.4-10.4); Platelet Count 270 10^3/uL (150-450); Red Blood Count 2.98 10^6 /uL (4.18-5.48); Red Cell Distribution Width 23 % (10-15)
[2018-09-02 08:08] LABS: Anion Gap 2 mmol/L (2-11); Blood Urea Nitrogen 9 mg/dL (6-24); CO2 Carbon Dioxide 29 mmol/L (22-32); Calcium 8.4 mg/dL (8.6-10.3); Chloride 102 mmol/L (101-111); EGFR African American 352.7 (>60); EGFR Non-African American 291.5 (>60); Glucose 91 mg/dL (70-100); Magnesium 1.7 mg/dL (1.9-2.7); Potassium 3.5 mmol/L (3.5-5.0); Sodium 133 mmol/L (135-145)
[2018-09-02] MEDS ORDERED: cefTRIAXone* 1 GM in NS 0.9% 50 ML BAG IVPB SCH (09:00)
[2018-09-02] MEDS ORDERED: Cholecalciferol TAB* 1000 UNITS PO SCH (09:00)
[2018-09-02] MEDS ORDERED: CEFTRIAXONE 1 GM IV SCH (09:00)
[2018-09-02] MEDS ORDERED: Magic Mouth Was-BEN/MAAL/LIDO SWISH SPIT SCH (09:00)
[2018-09-02] MEDS ORDERED: ERGOCALCIFEROL 800 UNIT PO SCH (09:00)
[2018-09-02] MEDS: Nystatin SUSPENSION* 100000 UNITS/ML 5 ML UDC PO SCH ×2 (09:58→20:46)
[2018-09-02] MEDS: Dorzolamide/Timolol OPTH (NF) 10 ML BOT BOTH EYES SCH (09:59)
[2018-09-02 10:51] LABS: Urine Appearance Clear; Urine Bacteria Absent (Absent); Urine Bilirubin Negative (Negative); Urine Blood 1+ (Negative); Urine Color Yellow; Urine Glucose Negative (Negative); Urine Ketones Negative (Negative); Urine Nitrite Negative (Negative); Urine Protein Negative (Negative); Urine Red Blood Cell 1+(3-5/hpf) (Absent); Urine Specific Gravity 1.008 (1.010-1.030); Urine Urobilinogen Negative (Negative); Urine White Blood Cell Trace(0-5/hpf) (Absent)
--- NOTE | 2018-09-02 13:28 | ECHO ---
*[facility]* [place] [address] Fax #: [phone] Transthoracic Echocardiogram Patient: Eduardo Moslye : 1940 Study Date: 09/02/2018 Age: 78 Gender: M HR: 84 bpm Height: 74 in /188 cm BSA: 1.98 m^2 Weight: 159.7 lb /72.6 kg BMI: 20.5 kg/m^2 *Coat Repair Inspector: Brittney Mckenzie RDCS RN *Referring Physician: * Hammad Sanchez *Reading Physician: * Chauncey Monsivais MD Indications: Congestive Heart Failure. History: Mitral regurgitation. Pancreatic cancer. Chemotherapy. Risk factors: Hypertension. Diabetes mellitus. Conclusions Summary: 1. Left ventricle: The cavity size is normal. Systolic function is normal. The estimated ejection fraction is 50-55%. There are no regional wall motion abnormalities. Doppler parameters are consistent with abnormal left ventricular relaxation (grade 1 diastolic dysfunction). 2. Normal cardiac chamber sizes. 3. Mitral valve: There is moderate regurgitation. 4. Tricuspid valve: There is moderate regurgitation. 5. Ascending aorta: The ascending aorta is mildly dilated. 6. Since the prior echocardiogram completed 03/09/14, pertinent change is prior normal ascending aortic size reported. Study data: Transthoracic echocardiogram. Procedure: Transthoracic echocardiography was performed. Image quality was fair. The study was technically limited due to body habitus. Complete 2D, spectral Doppler, and color flow Doppler. Location: Bedside. Patient status: Inpatient. Patient room number: 446-01. Rhythm: Normal sinus rhythm with PAC's. Findings Left ventricle: The cavity size is normal. Systolic function is normal. The estimated ejection fraction is 50-55%. There are no regional wall motion abnormalities. Doppler parameters are consistent with abnormal left ventricular relaxation (grade 1 diastolic dysfunction). Right ventricle: The cavity size is normal. Systolic function is normal. Left atrium: The atrium is normal in size. Right atrium: The atrium is normal in size. 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 No shunting noted. Mitral valve: The leaflets are mildly thickened. There is moderate regurgitation. Aortic valve: The valve is trileaflet. The leaflets are mildly thickened. Transvalvular velocity is within the normal range. There is no evidence of stenosis. There is no regurgitation. Tricuspid valve: The valve is structurally normal. There is moderate regurgitation. Pulmonic valve: The valve is structurally normal. There is no evidence of stenosis. There is trace regurgitation. Aorta: Aortic root: The aortic root is not dilated. Ascending aorta: The ascending aorta is mildly dilated. Aortic arch: The aortic arch is not dilated. Pericardium: There is no pericardial effusion. Pulmonary arteries: Not well visualized. No pulmonary hypertension. Pulmonary artery systolic pressure is within the normal range, estimated to be 34 mm Hg. Systemic veins: Inferior vena cava: The vessel is normal in size. The respirophasic diameter changes are in the normal range (>= 50%). Measurements Left ventricle Value Ref Aortic valve Value Ref ANAT, LAX 4.4 cm 4.2 - 5.8 Jose E diam, ED 2.4 cm ---- ESD, LAX 3.6 cm 2.5 - 4.0 Peak v, S 1.25 m/sec ---- FS, LAX (L) 19 % 25 - 43 VTI, S 18.2 cm ---- PW, ED 1.0 cm 0.6 - 1.0 Mean grad, S 4.0 mm Hg ---- IVS/PW, ED 1.06 Peak grad, S 6.0 mm Hg ---- PW/ID, ED 0.23 LVOT/AV, VTI ratio 0.85 ---- E', lat jose e, TDI (L) 5.5 cm/sec >=10.0 EVELYN, VTI 3.22 cm^2 -- -- E/e', lat jose e, 8 EVELYN, Vmax 2.40 cm^2 ---- TDI E', med jose e, TDI (L) 4.2 cm/sec >=7.0 Mitral valve Value Re f E/e', med jose e, 11 Peak E 0.45 m/sec ---- TDI Peak A 0.97 m/sec ---- E', avg, TDI 4.9 cm/sec Decel time 151 ms ---- E/e', avg, TDI 9 <=14 Peak E/A ratio 0.5 -- -- LVOT Value Ref Pulmonic valve Value Ref Diam, S 2.20 cm Peak v, S 0.49 m/sec ---- Area 3.8 cm^2 Peak grad, S 1.0 mm Hg ---- Peak myla, S 0.79 m/sec VTI, S 15.4 cm Tricuspid valve Value Ref Mean grad, S 2 mm Hg Peak RV-RA grad, S 31 mm Hg ---- SV 59 ml Max TR myla 2.8 m/sec ---- SV/bsa 30 ml/m^2 Aortic root Value Ref Ventricular septum Value Ref Root diam 3.5 cm <4.1 IVS, ED (H) 1.1 cm 0.6 - 1.0 Root max diam, ED 3.5 cm <4.1 Right ventricle Value Ref Ascending aorta Value Ref ANAT minor ax, A4C 3.2 cm 1.9 - 3.5 AAo AP diam, S 3.5 cm ---- mid AAo AP diam/bsa, S 1.8 cm/m^2 ---- Pressure, S 34 mm Hg Aortic arch Value Ref Left atrium Value Ref Arch diam 2.8 cm ---- AP dim, ES 4.00 cm 3.00 - 4.00 Decending aorta Value Ref ML dim, A4C 4.1 cm Julisa peak myla 0.55 m/sec ---- SI dim, A4C 4.0 cm Vol/bsa, ES, 1-p 21 ml/m^2 12 - 37 Pulmonary artery Value Ref A4C Pressure, S 33.0 mm Hg ---- Vol/bsa, ES, A/L 31 ml/m^2 16 - 34 Inferior vena cava Value Ref Right atrium Value Ref Diam 2.0 cm ---- ML dim, ES, A4C 3.7 cm 2.6 - 4.4 SI dim, ES, A4C 3.8 cm 3.4 - 5.3 Estimated RAP 3 mm Hg Legend: (L) and (H) gregory values outside specified reference range. Prepared and electronically signed by Chauncey Monsivais MD 09/02/2018 13:27
[2018-09-02 16:21] VITALS: BP 156/88
--- NOTE | 2018-09-02 21:44 | DS ---
CC: Dr. Kingsley DISCHARGE SUMMARY: DATE OF ADMISSION: 09/01/18 DATE OF DISCHARGE: 09/02/18 CONDITION ON DISCHARGE: Guarded. DISCHARGE DISPOSITION: Home. DISCHARGE DIAGNOSES: 1. Metastatic pancreatic cancer. 2. Clostridium liver abscess. 3. Hypoxia. HOSPITAL COURSE: Mr. Mosley was recently discharged from [facility] on 08/23/18 after developing a liver abscess, on IV antibiotics for 4 weeks. Plan has been for hospice after completing IV antibiotics. No additional therapy for his pancreatic cancer. He was admitted yesterday after he developed hypoxia and increasing shortness of breath at home. and the patient both felt like he was filling up with lot of phlegm. They called EMS and by their report, the ambulance documented hypoxia with saturation in the 80s. He received nebulizers and improved significantly before reaching the emergency room. On presentation to the emergency room, he had normal saturation, but was somewhat short of breath. He is chronically weak and malnourished from his metastatic disease. Admitted for shortness of breath Overnight he improved. This morning, he feels like his breathing is much better from what it was yesterday. No fevers or chills, states he was eating some food at home, has not been eating much here. They were anxious to get back home and avoid a prolonged hospitalization. Plan will be to discharged on prior home medications plus DuoNeb to reduce secretions. He did not qualify for home oxygen based on oxygen saturations over the last 24 hours. MEDICATIONS ON DISCHARGE: 1. Allopurinol 300 mg at bedtime. 2. Vitamin D 2000 units a day. 3. Cosopt eye drops b.i.d. both eyes. 4. Vitamin D2 800 q.a.m. 5. Xalatan 0.005% eye drops at bedtime. 6. Magic mouthwash p.r.n. 7. Morphine 15 mg p.o. q.2 p.r.n. 8. Nystatin 500 units 4 times a day p.r.n. 9. Compazine 10 mg q.8 p.r.n. 10. Spironolactone 50 mg at bedtime. 11. Ceftriaxone 1 g IV daily for an additional 17 days. 12. Albuterol ipratropium nebulizer solution q.4 hour p.r.n. PHYSICAL EXAM ON DISCHARGE: Temperature 97.6, pulse rate 96, respirations 16, BP 156/88. HEENT: Cachectic. Mucosa dry. No lymphadenopathy. Lungs: Decreased breath sounds throughout. Central rhonchi. Heart: Regular rhythm. S1, S2. No murmurs or gallops. Abdomen: Nontender, nondistended. Palpable liver edge. Extremities: No edema. Neurologic: Alert and oriented. General appearance is severely ill and cachectic. No followup scheduled in clinic. We will plan hospice consultation after IV antibiotics. Code status discussed. He had revoked his DNR on admission, but after further discussion, we reaffirmed that he wants to be DNR/DNI, does not want to live on machines or have extreme measures taken. [id number]/[facility] #: [id number] BAO
== END 2018-09-02 22:22 | disposition home or self-care (01) | DRG 205 ==
LOC: ED 17:13 → MEDTELE 19:21 → INTOOBSV 19:21 → MEDTELE 19:50
PROVIDERS: ADMIT Internal Medicine; ATTEND Internal Medicine Hematology & Oncology
DX: R09.02 Hypoxemia (principal); K75.0 Abscess of liver; C25.9 Malignant neoplasm of pancreas, unspecified; C79.9 Secondary malignant neoplasm of unspecified site; E46 Unspecified protein-calorie malnutrition; Z68.1 Body mass index [BMI] 19.9 or less, adult; B96.7 Clostridium perfringens [C. perfringens] as the cause of diseases classified elsewhere; E87.6 Hypokalemia; F41.9 Anxiety disorder, unspecified; Z66 Do not resuscitate; E55.9 Vitamin D deficiency, unspecified; I10 Essential (primary) hypertension; E11.39 Type 2 diabetes mellitus with other diabetic ophthalmic complication; H42 Glaucoma in diseases classified elsewhere; M19.90 Unspecified osteoarthritis, unspecified site; I34.0 Nonrheumatic mitral (valve) insufficiency; Z88.1 Allergy status to other antibiotic agents; Z80.42 Family history of malignant neoplasm of prostate; Z83.79 Family history of other diseases of the digestive system; Z87.891 Personal history of nicotine dependence
CPT/HCPCS: 36415; 71045; 80048; 80053; 81003; 81015; 83605; 83735; 83880; 84484; 85025; 87040; 87070; 87086; 87205; 93005; 93306; 96365; 96372; 96375; 99239; 99284; A9270-GY; G0378; J0456; J0696; J1642; J1650; J1940; J3480

== ENCOUNTER 2018-10-08 14:53 | Emergency (ER) | payer MEDICARE, OTHER ==
--- NOTE | 2018-10-08 15:36 | ED ---
Altered Mental Status - HPI Summary HPI Summary: Patient is a 78 y/o male who arrived at the ED with complaints of a choking episode and AMS. Due to the patients AMS, he is classified as a level 5 caveat. However, his was able to provide the patients medical history. She reported that the patient began to choke on a piece of ham at approximately 1400. She recognized this because she saw him trembling, hugging himself, and making a choking sound with difficulty breathing. She pounded on his back, which allegedly dislodged the food from his airway because she subsequently heard an improvement in his breathing. When she laid him down on his back, his breathing reportedly improved further. However, she notes that the patient has appeared more altered after the choking episode, noting she has never seen the patient as restless as he was during this visit. Patient is noted to be making writhing and kicking movements. The patient was also speaking and murmuring incomprehensibly. On multiple occasions, he attempted to remove pulse oximetry device off of his index finger. Later during the exam, the patient was able to deny headache, chest pain, and shoulder pain but, when asked how he was feeling , reverted to slurred speech. The patients believes that his AMS is unrelated to his pancreatic cancer. Patient is DNR/DNI. Possibility of stroke was discussed with patients . She is agreeable with Brain CT and labs but would not want TPA administered if there was indication to do so. Therefore, there will be no code brenner. - History Of Current Complaint Chief Complaint: EDAltMentalStatus Stated Complaint: CHOKING PER EMS Time Seen by Provider: 10/08/18 14:56 Hx Obtained From: Family/Control Panel Operator - Hx From Patient Unobtainable Due To: Altered Mental Status Onset/Duration: Still Present Timing: Intermittent - Patient had moments of lucidity Character: Confusion, Agitation - Making writhing and kicking movements, attempting to remove the pulse oximeter from his index finger, Responsiveness Associated Signs And Symptoms: Negative: Headache - Risk Factors CVA Risk Factor: Hypertension, Diabetes - Allergies/Home Medications Allergies/Adverse Reactions: Allergies Allergy/AdvReac Type Severity Reaction Status Date / Time bacitracin Allergy Unknown Verified 09/01/18 17:37 [From Neosporin Reaction ([id number])] Details neomycin Allergy Unknown Verified 09/01/18 17:37 [From Neosporin Reaction ([id number])] Details polymyxin B Allergy Unknown Verified 09/01/18 17:37 [From Neosporin Reaction ([id number])] Details PMH/Surg Hx/FS Hx/Imm Hx Endocrine/Hematology History: Reports: Hx Diabetes Cardiovascular History: Reports: Hx Hypertension Denies: Hx Pacemaker/ICD GI History: Reports: Other GI Disorders - PANCREATITIS, WAS IN HOSPITAL FEW WEEKS IN 04/2018,metastatic pancreatic CA History: Denies: Hx Renal Disease Sensory History: Reports: Hx Contacts or Glasses - GLASSES Denies: Hx Hearing Aid Opthamlomology History: Reports: Hx Contacts or Glasses - GLASSES Psychiatric History: Denies: Hx Panic Disorder - Cancer History Cancer Type, Location and Year: metastatic pancreatic CA on chemo - Surgical History Surgery Procedure, Year, and Place: 1947 tonsillectomy,. 2012 left leg with plate C[facility]. power port R side chest. stent placed Hx Anesthesia Reactions: No Infectious Disease History: No Infectious Disease History: Denies: Traveled Outside the [place] in Last 30 Days - Family History Known Family History: Negative: Cardiac Disease - Social History Alcohol Use: None Hx Substance Use: Yes Substance Use Type: Reports: Prescribed Substance Use Comment - Amount & Last Used: morphine Hx Tobacco Use: Yes Smoking Status (MU): Former Smoker Type: Cigarettes Amount Used/How Often: 1PPD 30 YRS Have You Smoked in the Last Year: No Review of Systems Positive: Other - positive-choking episode Negative: Chest Pain Negative: Myalgia - no shoulder pain Neurological: Other - positive AMS Negative: Headache All Other Systems Reviewed And Are Negative: No - Comments Additional Review of Systems Comments: Patient is a level 5 caveat due to AMS Physical Exam - Summary Physical Exam Summary: VITAL SIGNS: Reviewed. GENERAL: Patient is a thin elderly fragile ill-looking male who is lying restless in the stretcher. Patient is not in any acute respiratory distress. HEAD AND FACE: No signs of trauma. No ecchymosis, hematomas or skull depressions. No sinus tenderness. EYES: PERRLA, EOMI x 2, No injected conjunctiva, no nystagmus. EARS: Hearing grossly intact. Ear canals and tympanic membranes are within normal limits. MOUTH: Oropharynx within normal limits. NECK: Supple, trachea is midline, no adenopathy, no JVD, no carotid bruit, no c- spine tenderness, neck with full ROM. CHEST: Symmetric, no tenderness at palpation. LUNGS: Clear to auscultation bilaterally. No wheezing or crackles. NEURO: slurred speech present, unilateral weakness not present Triage Information Reviewed: Yes Vital Signs On Initial Exam: Initial Vitals Temp Pulse Resp BP Pulse Ox 98.1 F 96 17 164/105 99 10/08/18 15:07 10/08/18 15:07 10/08/18 15:07 10/08/18 15:07 10/08/18 15:07 Vital Signs Reviewed: Yes Completion Of Physical Exam Limited Due To: Altered Mental Status Appearance: Positive: Ill-Appearing, Thin Neurological: Positive: Slurred Speech Diagnostics - Vital Signs Vital Signs Temp Pulse Resp BP Pulse Ox 10/08/18 15:07 98.1 F 96 17 164/105 99 - Laboratory Result Diagrams: 10/08/18 16:04 10/08/18 16:04 Lab Statement: Any lab studies that have been ordered have been reviewed, and results considered in the medical decision making process. - Radiology CXR Radiology Interpretation Completed By: Radiologist Summary of Radiographic Findings: IMPRESSION: HYPERINFLATION. NO ACTIVE CARDIOPULMONARY DISEASE. This report was reviewed by the ED physician. - CT BRAIN CT CT Interpretation Completed By: Radiologist Summary of CT Findings: IMPRESSION: NO ACUTE INTRACRANIAL PATHOLOGY. THIS REPORT WAS REVIEWED BY DR. MARIEE - EKG EKG Cardiac Rate: NL EKG Rhythm: Sinus Rhythm Summary of EKG Findings: EKG is a normal sinus rhythm with rate of [address] elevation. Re-Evaluation - Re-Evaluation First Eval Re-Evaluation Time: 17:15 Change: Improved Comment: Patient is alert and oriented x3. He is at baseline. Results and findings were discussed with patient and family, does not want patient to stay in hospital, patient will be discharged to home. Altered Mental Statu Course/Dx - Course Assessment/Plan: Patient is a 78 y/o male who arrived at the ED with complaints of a choking episode and AMS. Due to the patients AMS, he is classified as a level 5 caveat. However, his was able to provide the patients medical history. She reported that the patient began to choke on a piece of ham at approximately 1400. She recognized this because she saw him trembling, hugging himself, and making a choking sound with difficulty breathing. She pounded on his back, which allegedly dislodged the food from his airway because she subsequently heard an improvement in his breathing. When she laid him down on his back, his breathing reportedly improved further. However, she notes that the patient has appeared more altered after the choking episode, noting she has never seen the patient as restless as he was during this visit. Patient is noted to be making writhing and kicking movements. The patient was also speaking and murmuring incomprehensibly. On multiple occasions, he attempted to remove pulse oximetry device off of his index finger. Later during the exam, the patient was able to deny headache, chest pain, and shoulder pain but, when asked how he was feeling, reverted to slurred speech. The patients believes that his AMS is unrelated to his pancreatic cancer. Patient is DNR/ DNI. Possibility of stroke was discussed with patients . She is agreeable with Brain CT and labs but would not want TPA administered if there was indication to do so. Therefore, there will be no code brenner. Blood test results showed no significant abnormality except for slight anemia, sodium 130, glucose 135, alk phos 368. Urinalysis is negative for UTI. Head CT impression: No acute intra-cranial pathology. Chest x-ray impression: Hyperinflation. No active cardiopulmonary disease. EKG is a normal sinus rhythm without ST elevation. In the ED course the patient has come back to baseline. The patient is alert and oriented 3. I offered the patient and the patients admission to the hospital for observation of the patient but the patients declined. They were recommended to return to the emergency department if the patient has any other symptoms. They understood and agreed. - Diagnoses Provider Diagnoses: Confusion, Choking episode Discharge - Sign-Out/Discharge Documenting (check all that apply): Patient Departure - discharge Patient Received Moderate/Deep Sedation with Procedure: No - Discharge Plan Condition: Stable Disposition: HOME Patient Education Materials: Performing the Heimlich Maneuver (ED), Esophageal Foreign Body (ED), Altered Mental Status (ED), Foreign Body in Pharynx (ED) Referrals: Christine Kingsley MD [Primary Care Provider] - 3 Days Additional Instructions: Please return to the ED if you experience any new or worsening symptoms. Additionally, please follow up with your primary care provider within the next three days. - Attestation Statements Document Initiated by Scribe: Yes Documenting Scribe: Brady Nicholas Provider For Whom Roberta is Documenting (Include Credential): Dr. Enzo Mariee MD Scribe Attestation: IBrady, scribed for Dr. Enzo Mariee MD on 10/08/18 at 1842. Status of Scribe Document: Ready
[2018-10-08 15:47] LABS: Urine Appearance Cloudy; Urine Bacteria Absent (Absent); Urine Bilirubin Negative (Negative); Urine Blood 1+ (Negative); Urine Color Yellow; Urine Glucose Negative (Negative); Urine Granular Casts Present (Absent); Urine Ketones Negative (Negative); Urine Nitrite Negative (Negative); Urine Protein 1+(30 mg/dL) (Negative); Urine Red Blood Cell 1+(3-5/hpf) (Absent); Urine Squamous Epithelial Cell Present (Absent); Urine Urobilinogen Negative (Negative); Urine White Blood Cell Trace(0-5/hpf) (Absent)
[2018-10-08 16:13] LABS: ABS Eosinophils 0.2 10^3/ul (0-0.6); ABS Monocytes 0.4 10^3/ul (0-0.8); ABS Neutrophils 4.2 10^3/ul (1.5-7.7); Eosinophil % 2.7 %; Hematocrit 36 % (42-52); Hemoglobin 11.8 g/dL (14.0-18.0); Lymphocyte % 16.7 %; Mean Corpuscular HGB Conc 33 g/dL (31-36); Mean Corpuscular Hemoglobin 29 pg (27-31); Mean Corpuscular Volume 88 fL (80-94); Mean Platelet Volume 7.5 fL (7.4-10.4); Nucleated Red Blood Cells % 0.1; Platelet Count 306 10^3/uL (150-450); Red Blood Count 4.06 10^6 /uL (4.18-5.48); Red Cell Distribution Width 17 % (10-15); White Blood Count 5.8 10^3/uL (3.5-10.8)
[2018-10-08 16:29] LABS: ALT 41 U/L (7-52); AST 23 U/L (13-39); Albumin 3.2 g/dL (3.2-5.2); Albumin/Globulin Ratio 0.9 (1-3); Alkaline Phosphatase 368 U/L (34-104); Anion Gap 6 mmol/L (2-11); BUN/Creatinine Ratio 33.3 (8-20); Blood Urea Nitrogen 14 mg/dL (6-24); CO2 Carbon Dioxide 27 mmol/L (22-32); Calcium 9.2 mg/dL (8.6-10.3); Chloride 97 mmol/L (101-111); EGFR African American 239.2 (>60); EGFR Non-African American 197.7 (>60); Globulin 3.7 g/dL (2-4); Glucose 135 mg/dL (70-100); Potassium 3.7 mmol/L (3.5-5.0); Sodium 130 mmol/L (135-145); Total Protein 6.9 g/dL (6.4-8.9)
[2018-10-08 16:34] LABS: Acetaminophen < 15 mcg/mL
[2018-10-08 16:49] LABS: TSH (Thyroid Stimulating Horm) 3.67 mcIU/mL (0.34-5.60)
[2018-10-08 17:09] VITALS: BP 154/92
== END 2018-10-08 17:33 | disposition home or self-care (01) ==
LOC: ED 14:53
DX: T17.928A Food in respiratory tract, part unspecified causing other injury, initial encounter (principal); R41.0 Disorientation, unspecified; X58.XXXA Exposure to other specified factors, initial encounter; Y92.009 Unspecified place in unspecified non-institutional (private) residence as the place of occurrence of the external cause; I10 Essential (primary) hypertension; E11.9 Type 2 diabetes mellitus without complications; Z88.1 Allergy status to other antibiotic agents; Z88.8 Allergy status to other drugs, medicaments and biological substances; Z87.891 Personal history of nicotine dependence
CPT/HCPCS: 36415; 70450; 71045; 80053; 80329; 81003; 81015; 82140; 82803; 83605; 84443; 84484; 85025; 87086; 93005; 99283; G0480